=== PATIENT | female | born 1990 | race Hispanic/Latino ===

== ENCOUNTER 2016-05-02 11:56 | Emergency (ER) | payer OTHER ==
[2016-05-02 11:59] VITALS: BMI 24.0
[2016-05-02 12:02] VITALS: RESP 20; O2SAT 98
[2016-05-02] MEDS ORDERED: Sodium Chloride 0.9% 1,000 ML IV STA (12:22)
--- NOTE | 2016-05-02 12:52 | ED PDOC ---
HPI: General Adult Time Seen by Provider: 05/02/16 12:00 Chief Complaint (Nursing): GI Problem History Per: Patient History/Exam Limitations: no limitations Additional Complaint(s): 25-year-old female, PMHx includes Anxiety, presents to the emergency department with complaints of nausea and non-bilious/non-bloody vomiting and diarrhea since this morning. Patient states she doesn't know if symptoms are due to anxiety, or vice versa. Patient notes that she has been stressed at work. Denies SI/HI, abdominal pain or any other associated symptoms. no other complaints at this time. Past Medical History Reviewed: Historical Data, Nursing Documentation, Vital Signs Vital Signs: Last Vital Signs Temp 97.6 F 05/02/16 15:51 Pulse 78 05/02/16 15:51 Resp 20 05/02/16 15:51 BP 128/78 05/02/16 15:51 Pulse Ox 98 05/02/16 17:36 - Medical History PMH: Anxiety - Surgical History Surgical History: No Surg Hx - Family History Family History: States: Unknown Family Hx - Social History Current smoker - smoking cessation education provided: No Alcohol: Occasional Drugs: Denies - Allergies Allergies/Adverse Reactions: Allergies Allergy/AdvReac Type Severity Reaction Status Date / Time No Known Allergies Allergy Verified 04/16/16 07:29 Review of Systems ROS Statement: Except As Marked, All Systems Reviewed And Found Negative Constitutional: Negative for: Fever, Chills Cardiovascular: Negative for: Chest Pain, Palpitations Gastrointestinal: Positive for: Nausea, Vomiting Neurological: Negative for: Weakness, Numbness, Headache, Dizziness Psych: Positive for: Anxiety Physical Exam - Reviewed Nursing Documentation Reviewed: Yes Vital Signs Reviewed: Yes - Physical Exam Appears: Positive for: Non-toxic, No Acute Distress (appears anxious) Head Exam: Positive for: ATRAUMATIC, NORMOCEPHALIC Skin: Positive for: Warm, Dry. Negative for: Rash Neck: Positive for: Painless ROM Respiratory: Negative for: Accessory Muscle Use, Respiratory Distress Extremity: Positive for: Normal ROM Neurologic/Psych: Positive for: Alert, Oriented - Laboratory Results Result Diagrams: 05/02/16 12:59 05/02/16 12:59 - ECG O2 Sat by Pulse Oximetry: 98 Medical Decision Making Medical Decision Making: Impression: Anxiety Plan: * Beta HCg, CBC * Ativan, IVF, Pepcid, Zofran * Reassess and Disposition 1433 Patients labs were reviewed. WBC is WNL, On re-evaluation, patients abdomen is soft and non-tender. Pt will be discharged home for outpatient follow up with PMD. All questions answered. Pt agreeable with plan pt tolerated po Scribe Attestation: Documented by Sona Thompson acting as a scribe for Hugh Ruth MD. Provider Attestation: All medical record entries made by the Scribe were at my direction and personally dictated by me. I have reviewed the chart and agree that the record accurately reflects my personal performance of the history, physical exam, medical decision making, and the department course for this patient. I have also personally directed, reviewed, and agree with the discharge instructions and disposition. Disposition - Clinical Impression Clinical Impression: Nausea & vomiting, Anxiety - Patient ED Disposition Is Patient to be Admitted: No Counseled Patient/Family Regarding: Studies Performed, Diagnosis, Need For Followup - Disposition Referrals: [facility] [Outside] [facility] [Outside] Disposition: Routine/Home Disposition Time: 14:00 Condition: GOOD Additional Instructions: follow up with your primary doctor and psychiatrist in 1-2 days.r eturn to the ED with any worsening or concerning symptoms. Instructions: Acute Nausea and Vomiting (ED), Anxiety (ED) Forms: [facility] ED School/Work Excuse
[2016-05-02 13:10] LABS: BASO % 0.4 % (0.0-2.0); EOS % 0.2 % (0.0-4.0); HEMATOCRIT 42.4 % (34.0-47.0); LYMPH # 0.8 K/uL (1.0-4.3); LYMPH % 9.1 % (20.0-40.0); MEAN CELL VOLUME 96.9 fl (81.0-99.0); MEAN CORPUSCULAR HEMOGLOBIN 33.4 pg (27.0-31.0); MEAN CORPUSCULAR HGB CONC 34.5 g/dL (33.0-37.0); MONO # 0.9 K/uL (0.0-0.8); MONO % 10.3 % (0.0-10.0); PLATELET COUNT 229 K/uL (130-400); RED CELL DISTRIBUTION WIDTH 12.5 % (11.5-14.5); WHITE BLOOD COUNT 8.7 K/uL (4.8-10.8)
[2016-05-02 13:20] LABS: ALB/GLOB RATIO 1.3 (1.0-2.1); ALKALINE PHOSPHATASE 86 U/L (38-126); ALT/SGPT 29 U/L (9-52); AST/SGOT 38 U/L (14-36); BILIRUBIN,TOTAL 0.9 mg/dl (0.2-1.3); BLOOD UREA NITROGEN 10 mg/dl (7-17); CALCIUM 9.4 mg/dL (8.4-10.2); CARBON DIOXIDE 20 mmol/L (22-30); CHLORIDE 100 mmol/L (98-107); GFR AFRICAN-AMERICAN > 60; GLUCOSE,RANDOM 115 mg/dL (65-105); POTASSIUM 4.1 MMOL/L (3.6-5.0); SODIUM 140 mmol/l (132-148); TOTAL PROTEIN 7.7 G/DL (6.3-8.2)
[2016-05-02 15:19] LABS: NEUTROPHIL 78 % (42-75); REACTIVE LYMPHOCYTES 1 % (0-0); TOTAL CELLS COUNTED 100
[2016-05-02 15:53] VITALS: BP 128/78; PULSE 78; TEMP 97.6
== END 2016-05-02 15:53 | disposition home or self-care (01) ==
LOC: H.ER 11:56
DX: R11.2 Nausea with vomiting, unspecified (principal); F41.9 Anxiety disorder, unspecified
CPT/HCPCS: 80053; 81025; 84702; 85025; 96374; 96375; 99282; J2060; J2405; J7040

== ENCOUNTER 2016-05-25 03:23 | Emergency (ER) | payer OTHER ==
[2016-05-25 03:23] VITALS: BMI 24.0
[2016-05-25 03:55] VITALS: BP 146/95; PULSE 110; RESP 17; TEMP 99.2; O2SAT 98
[2016-05-25] MEDS ORDERED: Sodium Chloride 0.9% 1,000 ML IV STA ×2 (04:15→05:57)
--- NOTE | 2016-05-25 04:19 | ED PDOC ---
HPI: General Adult Time Seen by Provider: 05/25/16 04:05 Chief Complaint (Nursing): GI Problem Chief Complaint (Provider): vomiting History Per: Patient History/Exam Limitations: no limitations Onset/Duration Of Symptoms: Hrs Current Symptoms Are (Timing): Still Present Additional History Per: Patient Additional Complaint(s): 25 y/o female history of anxiety presents with 6 episodes of nonbilious vomiting episodes x 5 hours. Patient notes associated palpitations, chest tightness. Patient admits to having a few drinks with friends last night. Denies fever, headache, dizziness, cough, shortness of breath, abdominal pain, dysuria, hematuria. Past Medical History Reviewed: Historical Data, Nursing Documentation, Vital Signs Vital Signs: Last Vital Signs Temp 99.2 F 05/25/16 03:52 Pulse 110 H 05/25/16 03:52 Resp 17 05/25/16 03:52 BP 146/95 H 05/25/16 03:52 Pulse Ox 98 05/25/16 04:19 - Medical History PMH: Anxiety - Family History Family History: States: Unknown Family Hx - Home Medications Home Medications: Ambulatory Orders Medication Instructions Recorded Ondansetron [Zofran] 4 mg PO Q8H PRN #10 tab 05/25/16 - Allergies Allergies/Adverse Reactions: Allergies Allergy/AdvReac Type Severity Reaction Status Date / Time No Known Allergies Allergy Verified 04/16/16 07:29 Review of Systems ROS Statement: Except As Marked, All Systems Reviewed And Found Negative Cardiovascular: Positive for: Palpitations Gastrointestinal: Positive for: Nausea, Vomiting Physical Exam - Reviewed Nursing Documentation Reviewed: Yes Vital Signs Reviewed: Yes - Physical Exam Appears: Positive for: Well, Non-toxic, No Acute Distress Head Exam: Positive for: ATRAUMATIC, NORMAL INSPECTION, NORMOCEPHALIC Skin: Positive for: Normal Color Eye Exam: Positive for: Normal appearance ENT: Positive for: Normal ENT Inspection Cardiovascular/Chest: Positive for: Regular Rate, Rhythm Respiratory: Positive for: Normal Breath Sounds Gastrointestinal/Abdominal: Positive for: Normal Exam Back: Positive for: Normal Inspection Extremity: Positive for: Normal ROM Neurologic/Psych: Positive for: Alert, Oriented - Laboratory Results Result Diagrams: 05/25/16 04:29 05/25/16 04:29 - ECG ECG: Positive for: Viewed By Me (reviewed by ED attending) ECG Rhythm: Positive for: Sinus Rhythm O2 Sat by Pulse Oximetry: 98 - Progress ED Course And Treament: labs, ekg, urine, IV fluids, IV zofran On re-eval, patient states she is feeling better; however vomited after drinking water. More IV fluids, Zofran ordered Disposition - Clinical Impression Clinical Impression: Alcohol use, Nausea & vomiting - Patient ED Disposition Is Patient to be Admitted: No - Disposition Disposition: Transfer of Care Disposition Time: 06:12 Condition: STABLE Prescriptions: Ondansetron [Zofran] 4 mg PO Q8H PRN #10 tab PRN Reason: Nausea/Vomiting Instructions: Alcohol Intoxication (ED), Acute Nausea and Vomiting (ED) Patient Signed Over To: Abrahan Lopez Handoff Comments: pending PO challenge after administration of meds
[2016-05-25 04:33] LABS: BASO % 0.3 % (0.0-2.0); EOS # 0.1 K/uL (0.0-0.7); EOS % 0.9 % (0.0-4.0); HEMATOCRIT 41.5 % (34.0-47.0); LYMPH # 1.3 K/uL (1.0-4.3); LYMPH % 16.7 % (20.0-40.0); MEAN CELL VOLUME 96.3 fl (81.0-99.0); MEAN CORPUSCULAR HEMOGLOBIN 33.4 pg (27.0-31.0); MEAN CORPUSCULAR HGB CONC 34.7 g/dL (33.0-37.0); MEAN PLATELET VOLUME 6.4 fl (7.2-11.7); MONO % 12.2 % (0.0-10.0); NEUT # 5.5 K/uL (1.8-7.0); NEUT % 69.9 % (50.0-75.0); NRBC % 0.1 % (0.0-0.0); RED CELL DISTRIBUTION WIDTH 13.4 % (11.5-14.5); WHITE BLOOD COUNT 7.9 K/uL (4.8-10.8)
[2016-05-25 04:41] LABS: ALB/GLOB RATIO 1.3 (1.0-2.1); ALCOHOL SERUM 64 mg/dl (0-10); ALKALINE PHOSPHATASE 102 U/L (38-126); ALT/SGPT 45 U/L (9-52); AST/SGOT 71 U/L (14-36); BILIRUBIN,TOTAL 0.9 mg/dl (0.2-1.3); BLOOD UREA NITROGEN 10 mg/dl (7-17); CARBON DIOXIDE 20 mmol/L (22-30); CHLORIDE 99 mmol/L (98-107); GFR AFRICAN-AMERICAN > 60; GLUCOSE,RANDOM 113 mg/dL (65-105); LIPASE 64 U/L (23-300); POTASSIUM 3.7 MMOL/L (3.6-5.0); SODIUM 140 mmol/l (132-148); TOTAL PROTEIN 8.2 G/DL (6.3-8.2)
[2016-05-25 05:11] LABS: THYROID STIMULATING HORMONE 2.56 mIU/ML (0.46-4.68)
--- NOTE | 2016-05-25 06:24 | ED PDOC ---
- Laboratory Results Result Diagrams: 05/25/16 04:29 05/25/16 04:29 - ECG O2 Sat by Pulse Oximetry: 98 Medical Decision Making Medical Decision Making: Patient s/o from [place] [facility] at 0600 pending PO challenge. 710am Pt. is feeling much better, tolerating PO. states this is a recurring problem, pt. states she will see doctor in [facility]. return precautions given. Scribe Attestation: Documented by Maria Esther Draper acting as a scribe for Abrahan Lopez MD. Provider Scribe Attestation: All medical record entries made by the Scribe were at my direction and personally dictated by me. I have reviewed the chart and agree that the record accurately reflects my personal performance of the history, physical exam, medical decision making, and the department course for this patient. I have also personally directed, reviewed, and agree with the discharge instructions and disposition. Disposition - Clinical Impression Clinical Impression: Alcohol use, Nausea & vomiting - POA Present On Arrival: None - Disposition Disposition: Routine/Home Disposition Time: 07:10 Condition: STABLE Prescriptions: Ondansetron [Zofran] 4 mg PO Q8H PRN #10 tab PRN Reason: Nausea/Vomiting Instructions: Alcohol Intoxication (ED), Acute Nausea and Vomiting (ED)
[2016-05-25 06:44] LABS: RBC URINE 2 /hpf (0-3); URINE BACTERIA OCC (<OCC); URINE BILIRUBIN NEGATIVE (NEGATIVE); URINE BLOOD NEGATIVE (NEGATIVE); URINE COLOR YELLOW (YELLOW); URINE GLUCOSE (UA) NEG (Normal); URINE KETONE 80 mg/dL (NEGATIVE); URINE LEUKOCYTE ESTERASE NEG Leu/uL (Negative); URINE PROTEIN 100 mg/dL (NEGATIVE); URINE UROBILINOGEN 0.2-1.0 mg/dL (0.2-1.0); WBC URINE 6 /hpf (0-5)
== END 2016-05-25 07:30 | disposition home or self-care (01) ==
LOC: H.ER 03:23
DX: F10.10 Alcohol abuse, uncomplicated (principal); R11.2 Nausea with vomiting, unspecified; Y90.3 Blood alcohol level of 60-79 mg/100 ml
CPT/HCPCS: 80053; 81003; 81025; 83690; 84443; 84484; 85025; 96360; 99282; G0480; J2405; J7040

== ENCOUNTER 2016-08-03 06:44 | Emergency (ER) | payer OTHER ==
[2016-08-03 06:45] VITALS: BMI 24.0
[2016-08-03 07:02] VITALS: TEMP 98.8
[2016-08-03] MEDS ORDERED: Sodium Chloride 0.9% 500 ML IV ONE (07:19)
--- NOTE | 2016-08-03 07:22 | ED PDOC ---
HPI: Chest Pain Time Seen by Provider: 08/03/16 07:02 Chief Complaint (Nursing): Chest Pain History Per: Patient History/Exam Limitations: no limitations Onset/Duration Of Symptoms: Gradual (this am at 4am) Current Symptoms Are (Timing): Still Present Severity: Mild Quality: Tightness Associated Symptoms: Nausea. denies: Dyspnea, Diaphoresis, Syncope Modifying Factors: None Exacerbating Factors: None Alleviating Factors: None Additional Complaint(s): similar sx to anxiety in the past Past Medical History Reviewed: Historical Data, Nursing Documentation, Vital Signs Vital Signs: Last Vital Signs Temp 98.8 F 08/03/16 06:58 Pulse 53 L 08/03/16 08:19 Resp 16 08/03/16 06:58 BP 174/70 H 08/03/16 08:19 Pulse Ox 97 08/03/16 08:19 - Medical History PMH: Anxiety - Family History Family History: States: Unknown Family Hx - Living Arrangements Living Arrangements: With Family - Social History Current smoker - smoking cessation education provided: No Alcohol: Occasional - Home Medications Home Medications: Ambulatory Orders Medication Instructions Recorded Ondansetron [Zofran] 4 mg PO Q8H PRN #10 tab 05/25/16 - Allergies Allergies/Adverse Reactions: Allergies Allergy/AdvReac Type Severity Reaction Status Date / Time No Known Allergies Allergy Verified 04/16/16 07:29 Review of Systems ROS Statement: Except As Marked, All Systems Reviewed And Found Negative Constitutional: Negative for: Fever, Chills Cardiovascular: Positive for: Chest Pain, Palpitations, Light Headedness. Negative for: Edema Respiratory: Negative for: Cough, Shortness of Breath Gastrointestinal: Positive for: Nausea. Negative for: Vomiting, Abdominal Pain , Diarrhea Neurological: Negative for: Weakness, Numbness Physical Exam - Reviewed Nursing Documentation Reviewed: Yes Vital Signs Reviewed: Yes - Physical Exam Appears: Positive for: Uncomfortable (anxious) Head Exam: Positive for: ATRAUMATIC, NORMAL INSPECTION, NORMOCEPHALIC Eye Exam: Positive for: Normal appearance, EOMI, PERRL Neck: Positive for: Normal, Painless ROM, Supple Cardiovascular/Chest: Positive for: Regular Rate, Rhythm, Chest Non Tender. Negative for: Edema, Murmur, Bradycardia, Tachycardia, Ectopy, Friction Rub, Irregularly Irregular Respiratory: Positive for: Normal Breath Sounds. Negative for: Decreased Breath Sounds, Accessory Muscle Use, Crackles, Rales, Rhonchi, Stridor, Wheezing Pulses-Radial (L): 2+ Pulses-Radial (R): 2+ Gastrointestinal/Abdominal: Positive for: Normal Exam, Bowel Sounds, Soft. Negative for: Tenderness Back: Positive for: Normal Inspection. Negative for: L CVA Tenderness, R CVA Tenderness Extremity: Positive for: Normal ROM. 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 Negative for: Motor/Sensory Deficits - Laboratory Results Result Diagrams: 08/03/16 07:45 08/03/16 07:45 - ECG ECG: Positive for: Interpreted By Me ECG Rhythm: Positive for: Normal QRS, Normal ST Segment, Sinus Rhythm. Negative for: ST/T Changes Interpretation Of Abn EKG: rate of 94, no evidnece of ischemia O2 Sat by Pulse Oximetry: 100 Pulse Ox Interpretation: Normal - Radiology X-Ray: Interpreted by Me X-Ray Interpretation: No Acute Disease - Progress ED Course And Treament: Suboptimal opacification of the pulmonary arteries as above. Allowing for this limitation, no obvious central pulmonary artery filling defects to suggest pulmonary embolism. Diffuse hypoattenuation of the liver. Multiple discrete hypodense hepatic lesions are evident of unclear significance. Left hepatic lobe 2.2 cm heterogeneous lesion is indeterminate. Recommend dedicated liver protocol cross -sectional imaging for further characterization. Discrete elliptical density within the medial left breast. Recommend further evaluation with dedicated breast imaging if indicated. Re-evaluation Time: 10:58 Condition: Improved Disposition - Clinical Impression Clinical Impression: Chest pain, Alcohol abuse - Patient ED Disposition Is Patient to be Admitted: No Counseled Patient/Family Regarding: Studies Performed, Diagnosis, Need For Followup - Disposition Disposition: Routine/Home Disposition Time: 11:00 Condition: GOOD Instructions: Alcohol Use Disorder (ED), Chest Pain (ED)
[2016-08-03 07:50] LABS: BASO % 0.4 % (0.0-2.0); EOS # 0.2 K/uL (0.0-0.7); EOS % 3.6 % (0.0-4.0); LYMPH % 18.9 % (20.0-40.0); MEAN CELL VOLUME 99.3 fl (81.0-99.0); MEAN CORPUSCULAR HGB CONC 34.3 g/dL (33.0-37.0); MEAN PLATELET VOLUME 6.9 fl (7.2-11.7); MONO # 0.7 K/uL (0.0-0.8); MONO % 12.6 % (0.0-10.0); NEUT # 3.5 K/uL (1.8-7.0); NEUT % 64.5 % (50.0-75.0); RBC 4.12 Mil/uL (3.80-5.20); RED CELL DISTRIBUTION WIDTH 13.7 % (11.5-14.5); WHITE BLOOD COUNT 5.4 K/uL (4.8-10.8)
[2016-08-03 08:01] LABS: ALB/GLOB RATIO 1.7 (1.0-2.1); ALBUMIN 4.8 g/dL (3.5-5.0); ALT/SGPT 114 U/L (9-52); AST/SGOT 100 U/L (14-36); BLOOD UREA NITROGEN 10 mg/dl (7-17); CALCIUM 9.3 mg/dL (8.4-10.2); GFR AFRICAN-AMERICAN > 60; GFR NON-AFRICAN AMERICAN > 60; LIPASE 79 U/L (23-300); MAGNESIUM 1.6 MG/DL (1.6-2.3)
[2016-08-03 08:13] LABS: SQUAMOUS EPITHIAL 3 /hpf (0-5); URINE BACTERIA RARE (<OCC); URINE BILIRUBIN NEGATIVE (NEGATIVE); URINE BLOOD NEGATIVE (NEGATIVE); URINE CLARITY SLIGHTY-CLOUDY (Clear); URINE COLOR YELLOW (YELLOW); URINE GLUCOSE (UA) NEG (Normal); URINE LEUKOCYTE ESTERASE TRACE Leu/uL (Negative); URINE NITRATE NEGATIVE (NEGATIVE); URINE PROTEIN 30 mg/dL (NEGATIVE); URINE UROBILINOGEN 0.2-1.0 mg/dL (0.2-1.0)
[2016-08-03 08:16] LABS: BARBITURATES, UR NEGATIVE (NEGATIVE); BENZODIAZEPINES, UR NEGATIVE (NEGATIVE); OPIATES, UR NEGATIVE (NEGATIVE); PHENCYCLIDINE, UR NEGATIVE (NEGATIVE)
[2016-08-03 08:19] LABS: INR 0.9 (0.9-1.2); PARTIAL THROMBOPLASTIN TIME 30.6 Seconds (25.6-37.1); PROTHROMBIN TIME 9.8 Seconds (9.8-13.1)
[2016-08-03] MEDS ORDERED: Sodium Chloride 0.9% 50 ML IV ONE (08:50)
[2016-08-03] MEDS ORDERED: Iodixanol 320 MG/ML 100 ML BOTTLE IV ONE (08:51)
--- NOTE | 2016-08-03 10:46 | CT ---
CTA chest PE protocol Indication: Chest pain Technique: Contiguous axial images were obtained through the chest with intravenous contrast enhancement. Sagittal and coronal reconstructions were generated and reviewed. This CT exam was performed using 1 or more of the falling dose reduction techniques: Automated exposure control, adjustment of the MAA and/or kV according to patient size, and/or use of iterative reconstruction technique. IV Contrast: 98 cc Visipaque 320 Radiation dose (DLP): Not available Comparison: Chest x-ray performed the same day and CTA chest performed 04/16/16 Findings: Visualized portions of the inferior thyroid gland appear unremarkable. The mediastinal and hilar vascular structures appear within normal limits. The heart appears within normal limits of size. There is suboptimal opacification of the pulmonary arteries due to missed bolus of the intravenous contrast limiting evaluation for pulmonary embolus (approximately 118 HU at the main pulmonary artery). Given this limitation, there are no obvious visible intraluminal filling defects within the central pulmonary arteries to suggest central pulmonary embolism. No focal consolidation. No pleural effusion. No pneumothorax. No suspicious pulmonary nodules measuring greater than 5 mm. Limited visualized portions of the upper abdomen demonstrates hypoattenuation of the liver consistent with hepatic steatosis. Additionally multiple hepatic hypodense lesions are evident of unclear significance. Heterogeneous left hepatic lobe mass measures approximately 2.2 x 2.2 cm. Discrete elliptical shaped density re-identified within the medial left breast measuring approximately 1.4 x 0.6 cm, indeterminate. Recommend further evaluation with dedicated breast imaging if indicated. No acute osseous abnormality is detected. Impression: Suboptimal opacification of the pulmonary arteries as above. Allowing for this limitation, no obvious central pulmonary artery filling defects to suggest pulmonary embolism. Diffuse hypoattenuation of the liver. Multiple discrete hypodense hepatic lesions are evident of unclear significance. Left hepatic lobe 2.2 cm heterogeneous lesion is indeterminate. Recommend dedicated liver protocol cross-sectional imaging for further characterization. Discrete elliptical density within the medial left breast. Recommend further evaluation with dedicated breast imaging if indicated. Findings discussed with Dr. Lombardo on 08/04/16 at 10:40 a.m.
[2016-08-03 11:31] VITALS: BP 172/90; PULSE 86; RESP 19; O2SAT 99
--- NOTE | 2016-08-03 11:33 | RAD ---
HISTORY: cp, shortness of breath COMPARISON: Chest x-ray performed 04/16/16, CTA chest performed 08/03/16 TECHNIQUE: Chest PA and lateral FINDINGS: LUNGS: No focal consolidation. Please note that chest x-ray has limited sensitivity for the detection of pulmonary masses. PLEURA: No significant pleural effusion identified. No definite pneumothorax . CARDIOVASCULAR: The cardiomediastinal silhouette appears within normal limits of size. OSSEOUS STRUCTURES: No acute osseous abnormality identified. VISUALIZED UPPER ABDOMEN: Unremarkable. OTHER FINDINGS: None. IMPRESSION: No focal consolidation, significant pleural effusion, or definite pneumothorax identified.
--- NOTE | 2016-08-11 06:29 | CARD ---
APPROVED REPORT EKG Measurement Heart [id number] <Conclusion> Normal sinus rhythm Normal ECG
== END 2016-08-03 13:19 | disposition home or self-care (01) ==
LOC: H.ER 06:44
DX: F10.10 Alcohol abuse, uncomplicated (principal); R07.89 Other chest pain; F41.9 Anxiety disorder, unspecified

== ENCOUNTER 2016-12-25 22:56 | Emergency (ER) | payer OTHER ==
[2016-12-25 22:56] VITALS: BMI 24.0
[2016-12-25 23:16] VITALS: BP 130/96; PULSE 103; RESP 18; TEMP 98; O2SAT 99
[2016-12-25] MEDS ORDERED: Sodium Chloride 0.9% 1,000 ML IV STA (23:30)
--- NOTE | 2016-12-25 23:56 | ED PDOC ---
HPI: Chest Pain Time Seen by Provider: 12/25/16 23:17 Chief Complaint (Nursing): Chest Pain Chief Complaint (Provider): Chest Pain History Per: Patient History/Exam Limitations: no limitations Onset/Duration Of Symptoms: Hrs (x5) Current Symptoms Are (Timing): Still Present Quality: Tightness Exacerbating Factors: Deep Breathing Additional Complaint(s): 26 year old female presents to ED with complaints of chest pain x5 hours and has a past medical history of anxiety (prescribed Xanax as needed). Describes pain as a tightness present in her lower mid-sternal area. Notes that pain worsens with deep breathing and confirms having similar pain back in May 2016 for which she was seen in the ED. (+) anxiety. 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 Confirms that she did not sleep much this weekend and also drank heavily for the past few days. Notes concern for dehydration. PCP: Marylu Past Medical History Reviewed: Historical Data, Nursing Documentation, Vital Signs Vital Signs: Last Vital Signs Temp 98 F 12/25/16 23:13 Pulse 103 H 12/25/16 23:13 Resp 18 12/25/16 23:13 BP 130/96 H 12/25/16 23:13 Pulse Ox 99 12/26/16 01:45 - Medical History PMH: Anxiety - Surgical History Surgical History: No Surg Hx - Family History Family History: States: No Known Family Hx - Social History Current smoker - smoking cessation education provided: No Ex-Smoker (has not smoked in the last 12 months): No Alcohol: Social Drugs: Denies - Home Medications Home Medications: Ambulatory Orders Medication Instructions Recorded Ondansetron [Zofran] 4 mg PO Q8H PRN #10 tab 05/25/16 - Allergies Allergies/Adverse Reactions: Allergies Allergy/AdvReac Type Severity Reaction Status Date / Time No Known Allergies Allergy Verified 12/25/16 23:13 KANDACE Risk Score for UA/NSTEMI - KANDACE Risk Score Age > 64: NO 3 or more CAD Risk Factors: NO Known CAD (Stenosis greater than 50%): NO Aspirin use in past 7 days: NO KANDACE Score: 0 Risk %: 5% Curb-65 Severity Score - CURB-65 Severity Score Confusion: No Respiratory Rate greater than/equal to 30: No Systolic BP <90 or Diastolic BP less than/equal 60mmHg: No Age >64: No Curb-65 Score: 0 Percentage 30-day mortality: 0.6% Wells Criteria for PE - Wells Criteria for Pulmonary Embolism Clinical Signs and Symptoms of DVT: No P.E is #1 Diagnosis, or Equally Likely: No Heart Rate >100: Yes Immobilization at least 3 days;Surgery previous 4 weeks: No Previous, objectively diagnosed PE or DVT: No Hemoptysis: No Malignancy w/treatment within 6 months, or palliative: No Total Score: 1.5 Review of Systems ROS Statement: Except As Marked, All Systems Reviewed And Found Negative Cardiovascular: Positive for: Chest Pain Psych: Positive for: Anxiety Physical Exam - Reviewed Nursing Documentation Reviewed: Yes Vital Signs Reviewed: Yes - Physical Exam Appears: Positive for: In Acute Distress (anxious) Head Exam: Positive for: ATRAUMATIC, NORMOCEPHALIC Skin: Positive for: Warm, Dry Eye Exam: Positive for: EOMI, PERRL ENT: Positive for: Other (dry mucus membranes). Negative for: Pharyngeal Erythema, Tonsillar Exudate Neck: Positive for: Painless ROM, Supple Cardiovascular/Chest: Positive for: Tachycardia. Negative for: Murmur Respiratory: Positive for: Normal Breath Sounds. Negative for: Rales, Respiratory Distress Gastrointestinal/Abdominal: Positive for: Soft. Negative for: Tenderness Extremity: Positive for: Normal ROM. Negative for: Deformity Neurologic/Psych: Positive for: Alert, Oriented (x3), Mood/Affect (anxious). Negative for: Motor/Sensory Deficits - Laboratory Results Result Diagrams: 12/25/16 23:40 12/25/16 23:40 - ECG O2 Sat by Pulse Oximetry: 99 (RA) Pulse Ox Interpretation: Normal Medical Decision Making Medical Decision Makin Initial impression: chest pain DDx: dehydration, reflux, alcohol withdrawal, anxiety, electrolyte abnormality Initial plan: * EtOH serum * Labs * UDrug screen * Magnesium * Phosphorus * Lirium 50mg PO * NS IV * Re-evaluation 0000 Patient will be signed out to Dr. Lopez pending ED work up. Scribe Attestation: Documented by Tesha Friend acting as a scribe for Morena Wynn MD. Scribe Attestation: All medical record entries made by the Scribe were at my direction and personally dictated by me. I have reviewed the chart and agree that the record accurately reflects my personal performance of the history, physical exam, medical decision making, and the department course for this patient. I have also personally directed, reviewed, and agree with the discharge instructions and disposition. Disposition - Clinical Impression Clinical Impression: Alcohol use, Dehydration - Disposition Disposition: Transfer of Care Disposition Time: 00:00 Condition: IMPROVED Instructions: Dehydration (ED), At-Risk Alcohol Use (ED) Forms: [employer] (Thai) Patient Signed Over To: Abrahan Lopez Handoff Comments: Pending ED work up
[2016-12-26 00:02] LABS: BASO % 0.5 % (0.0-2.0); EOS # 0.1 K/uL (0.0-0.7); EOS % 1.2 % (0.0-4.0); HEMATOCRIT 40.2 % (34.0-47.0); LYMPH # 0.9 K/uL (1.0-4.3); LYMPH % 14.1 % (20.0-40.0); MEAN CELL VOLUME 102.4 fl (81.0-99.0); MEAN CORPUSCULAR HEMOGLOBIN 34.5 pg (27.0-31.0); MEAN CORPUSCULAR HGB CONC 33.6 g/dL (33.0-37.0); MEAN PLATELET VOLUME 6.7 fl (7.2-11.7); MONO # 0.7 K/uL (0.0-0.8); MONO % 10.5 % (0.0-10.0); NEUT # 4.7 K/uL (1.8-7.0); NEUT % 73.7 % (50.0-75.0); RED CELL DISTRIBUTION WIDTH 12.9 % (11.5-14.5); WHITE BLOOD COUNT 6.3 K/uL (4.8-10.8)
[2016-12-26 00:11] LABS: ALB/GLOB RATIO 1.6 (1.0-2.1); ALCOHOL SERUM 93 mg/dl (0-10); ALKALINE PHOSPHATASE 93 U/L (38-126); ALT/SGPT 115 U/L (9-52); AST/SGOT 154 U/L (14-36); BILIRUBIN,TOTAL 0.8 mg/dl (0.2-1.3); BLOOD UREA NITROGEN 5 mg/dl (7-17); CALCIUM 8.7 mg/dL (8.4-10.2); CARBON DIOXIDE 23 mmol/L (22-30); CHLORIDE 100 mmol/L (98-107); GFR AFRICAN-AMERICAN > 60; GLUCOSE,RANDOM 96 mg/dL (65-105); MAGNESIUM 1.7 MG/DL (1.6-2.3); PHOSPHOROUS 3.3 mg/dl (2.5-4.5); POTASSIUM 3.6 MMOL/L (3.6-5.0); SODIUM 137 mmol/l (132-148); TOTAL PROTEIN 7.2 G/DL (6.3-8.2)
--- NOTE | 2016-12-26 00:27 | ED PDOC ---
- Laboratory Results Result Diagrams: 12/25/16 23:40 12/25/16 23:40 - ECG O2 Sat by Pulse Oximetry: 99 (RA) Medical Decision Making Medical Decision Makin Patient signed out to me from Dr. Wynn pending ED work up. 0136 Patient notes significant improvement in symptoms. Patient is stable for discharge home. Scribe Attestation: Documented by Tesha Friend acting as a scribe for Abrahan Lopez MD. Scribe Attestation: All medical record entries made by the Scribe were at my direction and personally dictated by me. I have reviewed the chart and agree that the record accurately reflects my personal performance of the history, physical exam, medical decision making, and the department course for this patient. I have also personally directed, reviewed, and agree with the discharge instructions and disposition. Disposition - Clinical Impression Clinical Impression: Alcohol use, Dehydration - POA Present On Arrival: None - Disposition Referrals: [facility] [Outside] Disposition: Routine/Home Disposition Time: 01:36 Condition: IMPROVED Instructions: Dehydration (ED), At-Risk Alcohol Use (ED) Forms: [email or web address] (Nepalese)
== END 2016-12-26 01:55 | disposition home or self-care (01) ==
LOC: H.ER 22:56
DX: E86.0 Dehydration (principal); F10.10 Alcohol abuse, uncomplicated; Y90.4 Blood alcohol level of 80-99 mg/100 ml; F41.9 Anxiety disorder, unspecified
CPT/HCPCS: 80053; 80320; 80324; 80345; 80346; 80349; 80353; 80358; 80361; 81025; 83735; 83992; 84100; 85025; 96360; 99283; J7040

== ENCOUNTER 2017-01-12 07:22 | Emergency (ER) | payer OTHER ==
[2017-01-12 07:32] VITALS: BMI 24.1
[2017-01-12] MEDS ORDERED: Sodium Chloride 0.9% 1,000 ML IV STA (07:57)
--- NOTE | 2017-01-12 08:02 | ED PDOC ---
HPI: General Adult Time Seen by Provider: 01/12/17 07:30 Chief Complaint (Nursing): Anxiety Chief Complaint (Provider): Anxiety History Per: Patient History/Exam Limitations: no limitations Onset/Duration Of Symptoms: Hrs (x 4) Current Symptoms Are (Timing): Still Present Additional Complaint(s): Ida Munoz is a 26 year old female, with a past medical history of anxiety, who presents complaining that she awoke at 4AM feeling shaky, as if her heart was racing. She attempted to get up and felt nauseous/lightheaded, and as if she was unable to take a deep breath. No chest pain, shortness of breath, headache, fever, vomiting, diarrhea, leg pain, or abdominal pain. Patient reports having episodes of anxiety attacks in the past, but this episode is longer than usual. She admits to drinking alcohol last night, no drug use. Also states she has been stressed at work recently, which may have triggered symptoms. No long distance travel. PMD: [facility] Past Medical History Reviewed: Historical Data, Nursing Documentation, Vital Signs Vital Signs: Last Vital Signs Temp 98.1 F 01/12/17 07:32 Pulse 104 H 01/12/17 07:32 Resp 17 01/12/17 07:32 BP 138/93 H 01/12/17 07:32 Pulse Ox 100 01/12/17 10:21 - Medical History PMH: Anxiety Denies: Chronic Kidney Disease - Surgical History Surgical History: No Surg Hx - Family History Family History: States: Unknown Family Hx - Social History Current smoker - smoking cessation education provided: No Alcohol: Social Drugs: Denies - Home Medications Home Medications: Ambulatory Orders Medication Instructions Recorded No Known Home Med 01/12/17 - Allergies Allergies/Adverse Reactions: Allergies Allergy/AdvReac Type Severity Reaction Status Date / Time No Known Allergies Allergy Verified 12/25/16 23:13 Review of Systems ROS Statement: Except As Marked, All Systems Reviewed And Found Negative Constitutional: Negative for: Fever Eyes: Negative for: Vision Change Cardiovascular: Negative for: Chest Pain Respiratory: Negative for: Shortness of Breath Gastrointestinal: Positive for: Nausea. Negative for: Vomiting, Abdominal Pain , Diarrhea Musculoskeletal: Negative for: Leg Pain Neurological: Positive for: Dizziness. Negative for: Headache Psych: Positive for: Anxiety Physical Exam - Reviewed Nursing Documentation Reviewed: Yes Vital Signs Reviewed: Yes (pulsox 100 on RA not 88) - Physical Exam Appears: Positive for: Non-toxic, No Acute Distress Head Exam: Positive for: ATRAUMATIC, NORMAL INSPECTION, NORMOCEPHALIC Skin: Positive for: Normal Color, Warm, Dry Eye Exam: Positive for: EOMI, Normal appearance, PERRL ENT: Positive for: Normal ENT Inspection Neck: Positive for: Normal, Painless ROM, Supple Cardiovascular/Chest: Positive for: Regular Rate, Rhythm. Negative for: Murmur Respiratory: Positive for: Normal Breath Sounds. Negative for: Accessory Muscle Use, Wheezing, Respiratory Distress Pulses-Dorsalis Pedis (L): 2+ Pulses-Dorsalis Pedis (R): 2+ Gastrointestinal/Abdominal: Positive for: Normal Exam, Soft. Negative for: Tenderness Back: Positive for: Normal Inspection. Negative for: L CVA Tenderness, R CVA Tenderness, Vertebral Tenderness Extremity: Positive for: Normal ROM, Capillary Refill (< 2 sec). 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 Negative for : Motor/Sensory Deficits - Laboratory Results Result Diagrams: 01/12/17 08:15 01/12/17 08:15 Interpretation Of Abn Labs: Troponin negative. Coags are wnl. LFTs elevated Urine POC: Negative - ECG ECG: Positive for: Interpreted By Me, Viewed By Me ECG Rhythm: Positive for: Normal QRS, Normal ST Segment, Sinus Rhythm. 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 Ceron. Pt is medically stable. AAOx3. 1030: Stable. AAOx3. Pain free. Tolerated PO. LFTs mild elevation likely from etoh use. Medical Decision Making Medical Decision Making: Time: 7:56 Initial Plan: * CMP * Alcohol serum * Troponin I * CBC w/ differential * PTT * Prothrombin time * Chest X-Ray * EKG * NS IV 1000 ml at 1000 mls/hr * Zofran 4 mg IV * Pending crisis evaluation Scribe Attestation: Documented by Jodi Antoine, acting as a scribe for Butch Gao MD Provider Scribe Attestation: All medical record entries made by the Scribe were at my direction and personally dictated by me. I have reviewed the chart and agree that the record accurately reflects my personal performance of the history, physical exam, medical decision making, and the department course for this patient. I have also personally directed, reviewed, and agree with the discharge instructions and disposition. Disposition - Clinical Impression Clinical Impression: Anxiety - Patient ED Disposition Is Patient to be Admitted: No Counseled Patient/Family Regarding: Studies Performed, Diagnosis, Need For Followup - Disposition Referrals: [facility] [Outside] - 01/16/17 [facility] [Outside] Disposition: Routine/Home Disposition Time: 10:31 Condition: STABLE Additional Instructions: Return if not better in 3 days. Instructions: Anxiety (ED) Forms: [facility] (Slovenian), [facility] ED School/Work Excuse
[2017-01-12 08:05] VITALS: O2SAT 100
[2017-01-12 08:32] LABS: BASO % 0.4 % (0.0-2.0); EOS # 0.1 K/uL (0.0-0.7); EOS % 0.7 % (0.0-4.0); HEMATOCRIT 43.7 % (34.0-47.0); LYMPH # 0.8 K/uL (1.0-4.3); LYMPH % 9.7 % (20.0-40.0); MEAN CELL VOLUME 101.2 fl (81.0-99.0); MEAN CORPUSCULAR HEMOGLOBIN 34.8 pg (27.0-31.0); MEAN CORPUSCULAR HGB CONC 34.4 g/dL (33.0-37.0); MEAN PLATELET VOLUME 6.7 fl (7.2-11.7); MONO # 0.7 K/uL (0.0-0.8); MONO % 9.6 % (0.0-10.0); NEUT # 6.2 K/uL (1.8-7.0); NEUT % 79.6 % (50.0-75.0); NRBC % 0.1 % (0.0-0.0); PLATELET COUNT 193 K/uL (130-400); RED CELL DISTRIBUTION WIDTH 12.9 % (11.5-14.5); WHITE BLOOD COUNT 7.8 K/uL (4.8-10.8)
[2017-01-12 08:41] LABS: PARTIAL THROMBOPLASTIN TIME 30.2 Seconds (25.6-37.1)
[2017-01-12 08:50] LABS: ALB/GLOB RATIO 1.5 (1.0-2.1); ALCOHOL SERUM < 10 mg/dl (0-10); ALKALINE PHOSPHATASE 96 U/L (38-126); ALT/SGPT 116 U/L (9-52); AST/SGOT 135 U/L (14-36); BILIRUBIN,TOTAL 0.9 mg/dl (0.2-1.3); BLOOD UREA NITROGEN 8 mg/dl (7-17); CALCIUM 9.4 mg/dL (8.4-10.2); CARBON DIOXIDE 24 mmol/L (22-30); CHLORIDE 99 mmol/L (98-107); GFR AFRICAN-AMERICAN > 60; GLUCOSE,RANDOM 93 mg/dL (65-105); SODIUM 137 mmol/l (132-148); TOTAL PROTEIN 7.5 G/DL (6.3-8.2)
[2017-01-12 09:36] LABS: EOSINOPHIL 1 % (0-7); NEUTROPHIL 82 % (42-75); TOTAL CELLS COUNTED 100
--- NOTE | 2017-01-12 11:06 | RAD ---
HISTORY: dyspnea COMPARISON: Chest radiographs 07/26/2016. FINDINGS: LUNGS: No active pulmonary disease. PLEURA: No significant pleural effusion identified, no pneumothorax apparent. CARDIOVASCULAR: Normal. OSSEOUS STRUCTURES: No significant abnormalities. VISUALIZED UPPER ABDOMEN: Normal. OTHER FINDINGS: None. IMPRESSION: No interval acute cardiopulmonary disease appreciated.
[2017-01-12 11:12] VITALS: BP 121/68; PULSE 81; RESP 14; TEMP 98
--- NOTE | 2017-01-13 08:57 | CARD ---
APPROVED REPORT EKG Measurement Heart [id number] IN 122P54 [id number] <Conclusion> Normal sinus rhythm Normal ECG
== END 2017-01-12 11:10 | disposition home or self-care (01) ==
LOC: H.ER 07:22
DX: F41.9 Anxiety disorder, unspecified (principal)
CPT/HCPCS: 71010; 80053; 80320; 81025; 84484; 85025; 85610; 85730; 93005; 96374; 99283; J2405; J7040

== ENCOUNTER 2017-03-02 04:41 | Emergency (ER) | payer OTHER ==
[2017-03-02 04:42] VITALS: BMI 24.1
[2017-03-02 04:58] VITALS: RESP 16; TEMP 98.9; O2SAT 100
[2017-03-02 05:45] LABS: BASO % 0.4 % (0.0-2.0); EOS # 0.1 K/uL (0.0-0.7); EOS % 1.4 % (0.0-4.0); LYMPH # 0.7 K/uL (1.0-4.3); LYMPH % 14.1 % (20.0-40.0); MEAN CELL VOLUME 100.9 fl (81.0-99.0); MEAN CORPUSCULAR HEMOGLOBIN 34.5 pg (27.0-31.0); MEAN CORPUSCULAR HGB CONC 34.2 g/dL (33.0-37.0); MEAN PLATELET VOLUME 6.5 fl (7.2-11.7); MONO # 0.6 K/uL (0.0-0.8); MONO % 11.9 % (0.0-10.0); NEUT # 3.7 K/uL (1.8-7.0); NEUT % 72.2 % (50.0-75.0); NRBC % 0.1 % (0.0-0.0); RBC 4.07 Mil/uL (3.80-5.20); RED CELL DISTRIBUTION WIDTH 12.7 % (11.5-14.5); WHITE BLOOD COUNT 5.1 K/uL (4.8-10.8)
--- NOTE | 2017-03-02 05:56 | ED PDOC ---
HPI: Chest Pain Time Seen by Provider: 03/02/17 04:52 Chief Complaint (Nursing): Palpitations Chief Complaint (Provider): Anxiety and palpitations History Per: Patient History/Exam Limitations: no limitations Onset/Duration Of Symptoms: Hrs (1 hour ago) Current Symptoms Are (Timing): Still Present Additional Complaint(s): 26 y/o female with a history of anxiety presents to the ED, after awakening from her sleep, complaining of have chest palpitations and feelings of anxiety, onset of 1 hour prior to arrival. Patient has also been experiencing some shortness of breath and chest tightness. She denies leg swelling and abdominal pain. Patient also reports using Xanax for anxiety, but now takes Lexapro. Of note, patient informs the provider of drinking significant amounts of alcohol the night before. Past Medical History Reviewed: Historical Data, Nursing Documentation, Vital Signs Vital Signs: Last Vital Signs Temp 98.9 F 03/02/17 04:55 Pulse 105 H 03/02/17 04:55 Resp 16 03/02/17 04:55 BP 151/85 H 03/02/17 04:55 Pulse Ox 100 03/02/17 06:14 - Medical History PMH: Anxiety Denies: Diabetes, Hepatitis, HIV, HTN, Chronic Kidney Disease, Seizures, Sexually Transmitted Disease - Surgical History Surgical History: No Surg Hx - Family History Family History: States: Unknown Family Hx - Social History Current smoker - smoking cessation education provided: No Ex-Smoker (has not smoked in the last 12 months): No Alcohol: > 2 Drinks/Day Drugs: Denies - Home Medications Home Medications: Ambulatory Orders Medication Instructions Recorded No Known Home Med 01/12/17 - Allergies Allergies/Adverse Reactions: Allergies Allergy/AdvReac Type Severity Reaction Status Date / Time No Known Allergies Allergy Verified 12/25/16 23:13 KANDACE Risk Score for UA/NSTEMI - KANDACE Risk Score Age > 64: NO 3 or more CAD Risk Factors: NO Known CAD (Stenosis greater than 50%): NO Aspirin use in past 7 days: NO Severe Angina: NO EKG ST changes greater than 0.5mm: NO Positive Cardiac Marker: NO KANDACE Score: 0 Risk %: 5% Wells Criteria for PE - Wells Criteria for Pulmonary Embolism Clinical Signs and Symptoms of DVT: No P.E is #1 Diagnosis, or Equally Likely: No Heart Rate >100: No Immobilization at least 3 days;Surgery previous 4 weeks: No Previous, objectively diagnosed PE or DVT: No Hemoptysis: No Malignancy w/treatment within 6 months, or palliative: No Total Score: 0 Review of Systems ROS Statement: Except As Marked, All Systems Reviewed And Found Negative Cardiovascular: Positive for: Other (chest tightness) Respiratory: Positive for: Shortness of Breath Gastrointestinal: Negative for: Abdominal Pain Musculoskeletal: Negative for: Leg Pain (leg swelling) Psych: Positive for: Anxiety Physical Exam - Reviewed Nursing Documentation Reviewed: Yes Vital Signs Reviewed: Yes - Physical Exam Appears: Positive for: Well (appears not come, anxious), Non-toxic. Negative for: Uncomfortable Head Exam: Positive for: ATRAUMATIC, NORMAL INSPECTION, NORMOCEPHALIC Skin: Positive for: Normal Color, Warm Eye Exam: Positive for: Normal appearance, EOMI, PERRL ENT: Positive for: Normal ENT Inspection Neck: Positive for: Normal, Painless ROM, Supple Cardiovascular/Chest: Positive for: Regular Rate, Rhythm. Negative for: Murmur Respiratory: Positive for: Normal Breath Sounds. Negative for: Respiratory Distress Gastrointestinal/Abdominal: Positive for: Normal Exam, Soft. Negative for: Tenderness Back: Positive for: Normal Inspection Extremity: Positive for: Normal ROM. Negative for: Pedal Edema, Deformity Neurologic/Psych: Positive for: Alert, Oriented. Negative for: Motor/Sensory Deficits - Laboratory Results Result Diagrams: 03/02/17 05:38 03/02/17 05:38 - ECG O2 Sat by Pulse Oximetry: 100 (RA) Pulse Ox Interpretation: Normal - Progress Re-evaluation Time: 06:10 Condition: Re-examined, Improved Medical Decision Making Medical Decision Making: Time: --05:05 Impression: --Palpitations and Anxiety Plan: --ECG --Alcohol Serum --labs --Troponin --ED urine dip -- test --Librium 50mg pO --Zofran Inj 4mg IV --lunchroom monitor Reassess -- Scribe Attestation: Documented by William Moran acting as a scribe for Georgina Chaney MD. Provider Attestation: All medical record entries made by the Scribe were at my direction and personally dictated by me. I have reviewed the chart and agree that the record accurately reflects my personal performance of the history, physical exam, medical decision making, and the department course for this patient. I have also personally directed, reviewed, and agree with the discharge instructions and disposition. Disposition - Clinical Impression Clinical Impression: Palpitations, Anxiety disorder, Alcohol abuse - Patient ED Disposition Is Patient to be Admitted: No Doctor Will See Patient In The: Office Counseled Patient/Family Regarding: Studies Performed, Diagnosis, Need For Followup - Disposition Referrals: Johanne Delaney MD [Primary Care Provider] - Disposition: Routine/Home Disposition Time: 06:12 Condition: GOOD Additional Instructions: Follow up with your PCP in 2-3 days. Instructions: Palpitations (ED), Alcohol Intoxication (ED)
[2017-03-02 06:09] LABS: BLOOD UREA NITROGEN 8 mg/dl (7-17); CALCIUM 9.7 mg/dL (8.4-10.2); GFR AFRICAN-AMERICAN > 60; GFR NON-AFRICAN AMERICAN > 60
[2017-03-02 06:45] VITALS: BP 132/83; PULSE 85
--- NOTE | 2017-03-03 18:30 | CARD ---
APPROVED REPORT EKG Measurement Heart [id number] ME [id number] [id number] <Conclusion> Normal sinus rhythm
== END 2017-03-02 06:44 | disposition home or self-care (01) ==
LOC: H.ER 04:41
DX: R00.2 Palpitations (principal); F10.10 Alcohol abuse, uncomplicated; F41.9 Anxiety disorder, unspecified
CPT/HCPCS: 80048; 80320; 84484; 85025; 93005; 96374; 99282; J2405

== ENCOUNTER 2017-04-15 06:51 | Emergency (ER) | payer OTHER ==
[2017-04-15 06:51] VITALS: BMI 24.1
[2017-04-15 07:08] VITALS: O2SAT 99
[2017-04-15] MEDS ORDERED: Sodium Chloride 0.9% 1,000 ML IV STA (07:20)
--- NOTE | 2017-04-15 07:22 | ED PDOC ---
HPI: Abdomen Time Seen by Provider: 04/15/17 07:12 Chief Complaint (Nursing): Fever History Per: Patient Onset/Duration Of Symptoms: Hrs (3) Current Symptoms Are (Timing): Still Present Severity: Moderate Location Of Pain/Discomfort: Epigastric Quality Of Discomfort: Unable To Describe Associated Symptoms: Nausea, Vomiting. denies: Diarrhea Additional Complaint(s): Nausea and vomiting x 3 hours this AM. Assoc with mild epigastric pain. Denies blod in vomitus. No diarrhea or fever. Admits to ETOH consumption last night. Past Medical History Vital Signs: Last Vital Signs Temp 97.6 F 04/15/17 07:04 Pulse 116 H 04/15/17 07:04 Resp 18 04/15/17 07:04 BP 139/88 04/15/17 07:04 Pulse Ox 99 04/15/17 07:23 - Medical History PMH: Anxiety Denies: Diabetes, Hepatitis, HIV, HTN, Chronic Kidney Disease, Seizures, Sexually Transmitted Disease - Family History Family History: States: Unknown Family Hx - Home Medications Home Medications: Ambulatory Orders Medication Instructions Recorded Ondansetron [Zofran] 4 mg PO Q8H #10 tab 04/15/17 - Allergies Allergies/Adverse Reactions: Allergies Allergy/AdvReac Type Severity Reaction Status Date / Time No Known Allergies Allergy Verified 04/15/17 07:04 Review of Systems Constitutional: Negative for: Fever Gastrointestinal: Positive for: Nausea, Vomiting, Abdominal Pain Psych: Positive for: Anxiety Physical Exam - Physical Exam Appears: Positive for: Non-toxic, No Acute Distress Skin: Positive for: Normal Color, Warm, DRY ENT: Positive for: Other (Mucous membranes dry) Neck: Positive for: Normal, Painless ROM Cardiovascular/Chest: Positive for: Regular Rate, Rhythm, Tachycardia Respiratory: Positive for: CNT, Normal Breath Sounds Gastrointestinal/Abdominal: Positive for: Bowel Sounds, Soft. Negative for: Tenderness Extremity: Positive for: Normal ROM Neurologic/Psych: Positive for: Alert, Oriented. Negative for: Motor/Sensory Deficits - Laboratory Results Result Diagrams: 04/15/17 07:38 04/15/17 07:38 - ECG O2 Sat by Pulse Oximetry: 99 Disposition - Clinical Impression Clinical Impression: Gastritis, Dehydration - Patient ED Disposition Is Patient to be Admitted: No - Disposition Referrals: [facility] [Outside] Disposition: Routine/Home Disposition Time: 10:28 Condition: FAIR Prescriptions: Ondansetron [Zofran] 4 mg PO Q8H #10 tab Instructions: Gastritis, Dehydration, Adult (DC) Forms: [employer] ([place]ive[place])
[2017-04-15 07:43] LABS: BASO % 0.5 % (0.0-2.0); EOS % 0.4 % (0.0-4.0); HEMOGLOBIN 14.5 g/dL (12.0-16.0); LYMPH # 0.8 K/uL (1.0-4.3); LYMPH % 11.3 % (20.0-40.0); MEAN CELL VOLUME 101.8 fl (81.0-99.0); MEAN CORPUSCULAR HEMOGLOBIN 34.9 pg (27.0-31.0); MEAN CORPUSCULAR HGB CONC 34.3 g/dL (33.0-37.0); MEAN PLATELET VOLUME 6.5 fl (7.2-11.7); MONO # 0.6 K/uL (0.0-0.8); MONO % 8.7 % (0.0-10.0); NEUT # 5.4 K/uL (1.8-7.0); NEUT % 79.1 % (50.0-75.0); RBC 4.17 Mil/uL (3.80-5.20); RED CELL DISTRIBUTION WIDTH 12.2 % (11.5-14.5); WHITE BLOOD COUNT 6.8 K/uL (4.8-10.8)
[2017-04-15 08:14] LABS: ALB/GLOB RATIO 1.4 (1.0-2.1); ALBUMIN 4.7 g/dL (3.5-5.0); ALT/SGPT 55 U/L (9-52); AST/SGOT 57 U/L (14-36); BLOOD UREA NITROGEN 11 mg/dl (7-17); CALCIUM 9.5 mg/dL (8.4-10.2); GFR AFRICAN-AMERICAN > 60; GFR NON-AFRICAN AMERICAN > 60
[2017-04-15 10:50] VITALS: BP 112/68; PULSE 85; RESP 14; TEMP 98.2
== END 2017-04-15 10:49 | disposition home or self-care (01) ==
LOC: H.ER 06:51
DX: K29.70 Gastritis, unspecified, without bleeding (principal); E86.0 Dehydration; F41.9 Anxiety disorder, unspecified
CPT/HCPCS: 80053; 80320; 81025; 85025; 96374; 99283; J2405; J7040

== ENCOUNTER 2017-04-22 19:17 | Inpatient (IN) | payer OTHER ==
[2017-04-22 19:17] VITALS: BMI 24.1
[2017-04-22] MEDS ORDERED: Sodium Chloride 0.9% 1,000 ML IV STA ×2 (20:21→22:31)
--- NOTE | 2017-04-22 20:31 | ED PDOC ---
HPI: Hypertension/Hypotension Time Seen by Provider: 04/22/17 19:42 Chief Complaint (Nursing): Chest Pain Chief Complaint (Provider): Palpitations History Per: Patient History/Exam Limitations: no limitations Onset/Duration Of Symptoms: Hrs (earlier today) Current Symptoms Are (Timing): Still Present Associated Symptoms: denies: Chest Pain Quality Of Symptoms: Rapid Heart Rate Additional Complaint(s): 26 year old female presents to ED with complaints of palpitations since earlier today and has a history of anxiety. Patient admits to drinking alcohol today, which she states worsens her anxiety. (+) vomiting. (-) diarrhea, fever, chest pain, or SOB. PCP: Mary[facility] Past Medical History Reviewed: Historical Data, Nursing Documentation, Vital Signs Vital Signs: Last Vital Signs Temp 97.2 F L 04/22/17 19:30 Pulse 143 H 04/22/17 19:30 Resp 18 04/22/17 19:30 BP 142/94 H 04/22/17 19:30 Pulse Ox 99 04/22/17 19:30 - Medical History PMH: Anxiety, Depression Denies: Diabetes, Hepatitis, HIV, HTN, Chronic Kidney Disease, Seizures, Sexually Transmitted Disease - Family History Family History: States: Unknown Family Hx - Social History Alcohol: Social - Home Medications Home Medications: Ambulatory Orders Medication Instructions Recorded Escitalopram [Lexapro] 10 mg PO DAILY 04/22/17 Ethinyl Estradiol/Drospirenone 1 each PO DAILY 04/22/17 [Soo 28 Tablet] - Allergies Allergies/Adverse Reactions: Allergies Allergy/AdvReac Type Severity Reaction Status Date / Time No Known Allergies Allergy Verified 04/22/17 19:29 Review of Systems ROS Statement: Except As Marked, All Systems Reviewed And Found Negative Constitutional: Negative for: Fever Cardiovascular: Positive for: Palpitations. Negative for: Chest Pain Respiratory: Negative for: Shortness of Breath Gastrointestinal: Positive for: Vomiting. Negative for: Diarrhea Physical Exam - Reviewed Nursing Documentation Reviewed: Yes Vital Signs Reviewed: Yes - Physical Exam Appears: Positive for: Non-toxic, No Acute Distress Skin: Positive for: Normal Color, Warm, Dry Eye Exam: Positive for: Normal appearance, EOMI, PERRL Cardiovascular/Chest: Positive for: Regular Rate, Rhythm, Tachycardia Respiratory: Positive for: Normal Breath Sounds. Negative for: Respiratory Distress Gastrointestinal/Abdominal: Positive for: Normal Exam, Soft. Negative for: Tenderness Extremity: Positive for: Normal ROM. Negative for: Deformity Neurologic/Psych: Positive for: Alert, Oriented. Negative for: Motor/Sensory Deficits - Laboratory Results Result Diagrams: 04/23/17 04:30 04/23/17 04:30 - ECG Interpretation Of ECG: ST @ 132, PACs. O2 Sat by Pulse Oximetry: 99 (RA) Pulse Ox Interpretation: Normal - Critical Care Total Time (In Min): 45 Medical Decision Making Medical Decision Makin Initial impression: palpitations, alcohol intoxication Initial plan: * EKG * EtOH serum * Labs * UDrug screen * TSH * UDip * UPreg * D Dimer * PTT/PT * NS IV * Zofran Inj 4mg IVP * Re-eval Pt remains tachycardic despite 1 L IVF. Pt denies daily EtOH use, states she drinks only on weekends. Denies LOC or seizure-like activity, states she was drinking all day for [employer], went home and started feeling palpitations and vomiting. Scribe Attestation: Documented by Tesah Friend acting as a scribe Yelitza Ayon MD. Scribe Attestation: All medical record entries made by the Scribe were at my direction and personally dictated by me. I have reviewed the chart and agree that the record accurately reflects my personal performance of the history, physical exam, medical decision making, and the department course for this patient. I have also personally directed, reviewed, and agree with the discharge instructions and disposition. Disposition - Clinical Impression Clinical Impression: Alcoholic ketoacidosis - Patient ED Disposition Is Patient to be Admitted: Yes - Disposition Disposition Time: 23:57 Condition: GUARDED - Pt Status Changed To: Hospital Disposition Of: Inpatient - Admit Certification Admit to Inpatient:: After my assessment, the patient will require hospitalization for at least two midnights. This is because of the severity of symptoms shown, intensity of services needed, and/or the medical risk in this patient being treated as an outpatient. - POA Present On Arrival: None
[2017-04-22 20:47] LABS: BASO % 0.2 % (0.0-2.0); HEMOGLOBIN 17.2 g/dL (12.0-16.0); LYMPH # 0.5 K/uL (1.0-4.3); LYMPH % 3.6 % (20.0-40.0); MEAN CELL VOLUME 104.8 fl (81.0-99.0); MEAN CORPUSCULAR HGB CONC 33.4 g/dL (33.0-37.0); MEAN PLATELET VOLUME 6.6 fl (7.2-11.7); MONO # 0.8 K/uL (0.0-0.8); MONO % 6.5 % (0.0-10.0); NEUT # 11.4 K/uL (1.8-7.0); NEUT % 89.7 % (50.0-75.0); NRBC % 0.1 % (0.0-0.0); PLATELET COUNT 302 K/uL (130-400); RBC 4.91 Mil/uL (3.80-5.20); RED CELL DISTRIBUTION WIDTH 12.6 % (11.5-14.5); WHITE BLOOD COUNT 12.7 K/uL (4.8-10.8)
[2017-04-22 21:07] LABS: BARBITURATES, UR NEGATIVE (NEGATIVE); BENZODIAZEPINES, UR NEGATIVE (NEGATIVE); OPIATES, UR NEGATIVE (NEGATIVE); PHENCYCLIDINE, UR NEGATIVE (NEGATIVE)
[2017-04-22 21:29] LABS: PROTHROMBIN TIME 10.6 Seconds (9.8-13.1)
[2017-04-22 21:30] LABS: INR 0.9 (0.9-1.2); PARTIAL THROMBOPLASTIN TIME 30.4 Seconds (25.6-37.1)
[2017-04-22 22:10] LABS: BANDS 4 % (0-2); EOSINOPHIL 1 % (0-7); LYMPHOCYTE 5 % (20-50); MONOCYTE 5 % (0-10); NEUTROPHIL 85 % (42-75); TOTAL CELLS COUNTED 100
[2017-04-22 22:11] LABS: PLATELET ESTIMATE NORMAL (NORMAL)
[2017-04-22 22:28] LABS: ALB/GLOB RATIO 1.1 (1.0-2.1); ALBUMIN 5.5 g/dL (3.5-5.0); ALT/SGPT 50 U/L (9-52); AST/SGOT 105 U/L (14-36); BLOOD UREA NITROGEN 8 mg/dl (7-17); CALCIUM 9.7 mg/dL (8.4-10.2); GFR AFRICAN-AMERICAN > 60; GFR NON-AFRICAN AMERICAN > 60
[2017-04-22 22:41] LABS: PARTIAL THROMBOPLASTIN TIME 30.8 Seconds (25.6-37.1); PROTHROMBIN TIME 10.6 Seconds (9.8-13.1)
[2017-04-22 22:50] LABS: ABG ALLEN TEST YES; ARTERIAL BLOOD GAS HCO3 10.6 mmol/L (21-28); ARTERIAL BLOOD GAS O2 SAT 98.2 % (95-98); ARTERIAL BLOOD GAS PCO2 18 mm/Hg (35-45); ARTERIAL BLOOD GAS PH 7.21 (7.35-7.45); ARTERIAL BLOOD GAS PO2 118 mm/Hg (80-100); ARTERIAL BLOOD GAS TCO2 7.8 mmol/L (22-28)
[2017-04-22] MEDS ORDERED: Multivitamin (MVI) 10 ML, Thiamine 100 MG, Folic Acid 1 MG in Sodium Chloride 0.9% 1,00... IV ONE (23:11)
[2017-04-22] MEDS ORDERED: Sodium Chloride 0.9% 1,000 ML IV SCH (23:30)
--- NOTE | 2017-04-22 23:35 | CP.PCM.CON ---
History of Present Illness - History of Present Illness History of Present Illness: Attending: Dr Brian Robbins Reason for Consult: Critical care management Chief Complaint: Palpitation/Chest Pain The patient was seen and examined in the ED HPI: 26 years old female with hx of Alcoholic abuse, anxiety and palpitation, comes with 2 hours of chest tightness, vomiting with nausea tachycardia and [id number]. She had been celebrating and had been drinking Alcohol. Denies Fever, cough, diarrhea, dysuria, SOB. PMH: Anxiety; Palpitation PSH: Denies SH: Never smoked; No illegal drug use; Alcohol Socially; Live with family; Unemployed FH: Father Alcoholic Brother Alcoholic, Suicide Allergy: NKDA Medication: Denies - Medical History PMH: Anxiety, Depression Denies: Diabetes, Hepatitis, HIV, HTN, Chronic Kidney Disease, Seizures, Sexually Transmitted Disease - Family History Family History: States: Unknown Family Hx - Social History Alcohol: Social - Home Medications Home Medications: Review of Systems - Constitutional Constitutional: absent: Anorexia, Chills, Fatigue, Fever, Headache - EENT Eyes: absent: Diplopia, Floaters, Requires Corrective Lenses, Sees Flashes Ears: absent: Decreased Hearing, Ear Discharge, Ear Pain, Tinnitus Nose/Mouth/Throat: absent: Epistaxis, Nasal Congestion, Sinus Pain, Sinus Pressure - Cardiovascular Cardiovascular: Palpitations. absent: Dyspnea, Edema Additional comments: Chest Pressure - Respiratory Respiratory: absent: Cough, Dyspnea, Wheezing, Chest Congestion - Gastrointestinal Gastrointestinal: Nausea, Vomiting. absent: Abdominal Pain, Constipation, Diarrhea - Genitourinary Genitourinary: absent: Dysuria, Flank Pain, Hematuria, Urinary Frequency - Musculoskeletal Musculoskeletal: absent: Arthralgias, Muscle Weakness, Neck Pain - Integumentary Integumentary: absent: Pruritus, Rash, Skin Ulcer, Sores, Striae, Swelling - Neurological Neurological: absent: Confusion, Dizziness, Focal Weakness, Loss of Vision, Weakness - Psychiatric Psychiatric: Anxiety. absent: Change in Appetite, Depression, Panic Attacks, Suicidal Ideation - Endocrine Endocrine: absent: Palpitations, Polydipsia, Polyphagia, Polyuria - Hematologic/Lymphatic Hematologic: absent: Easy Bleeding, Easy Bruising Past Patient History - Past Medical History & Family History Past Medical History?: No - Past Social History Smoking Status: Never Smoked Chewing Tobacco Use: No Cigar Use: No Alcohol: Social Home Situation {Lives}: With Family - CARDIAC Hx Cardiac Disorders: Yes Hx Hypertension: No Other/Comment: Palpitation - PULMONARY Hx Respiratory Disorders: No Hx Tuberculosis: No - NEUROLOGICAL Hx Neurological Disorder: No Hx Seizures: No - HEENT Hx HEENT Problems: No - RENAL Hx Chronic Kidney Disease: No - ENDOCRINE/METABOLIC Hx Endocrine Disorders: No - HEMATOLOGICAL/ONCOLOGICAL Hx Blood Disorders: No Hx Human Immunodeficiency Virus (HIV): No - INTEGUMENTARY Hx Dermatological Problems: No - MUSCULOSKELETAL/RHEUMATOLOGICAL Hx Musculoskeletal Disorders: No - GASTROINTESTINAL Hx Gastrointestinal Disorders: No - GENITOURINARY/GYNECOLOGICAL Hx Sexually Transmitted Disorders: No - PSYCHIATRIC Hx Anxiety: Yes Hx Depression: Yes - SURGICAL HISTORY Hx Surgeries: No - ANESTHESIA Hx Anesthesia: No Meds Allergies/Adverse Reactions: Allergies Allergy/AdvReac Type Severity Reaction Status Date / Time No Known Allergies Allergy Verified 04/22/17 19:29 - Medications Medications: Current Medications Chlordiazepoxide (Librium) 25 mg PO Q6 [facility] Multivitamins/Vitamin C 10 ml/Thiamine HCl 100 mg/ Folic Acid 1 mg/ Sodium Chloride 1,011.2 mls @ 252.8 mls/hr IV .Q4H ONE Stop: 04/23/17 03:10 Sodium Chloride (Sodium Chloride 0.9%) 1,000 mls @ 150 mls/hr IV .Q6H40M NANCI Stop: 04/23/17 23:19 Ondansetron HCl (Zofran Inj) 4 mg IVP Q6 PRN PRN Reason: Nausea/Vomiting Physical Exam - Constitutional Appears: No Acute Distress - Head Exam Head Exam: ATRAUMATIC, NORMAL INSPECTION, NORMOCEPHALIC - Eye Exam Eye Exam: EOMI Pupil Exam: NORMAL ACCOMODATION, PERRL - ENT Exam ENT Exam: Mucous Membranes Moist, Normal Exam, Normal External Ear Exam - Neck Exam Neck exam: Positive for: Full Rom, Normal Inspection. Negative for: Lymphadenopathy, Tenderness - Respiratory Exam Respiratory Exam: Clear to Auscultation Bilateral. absent: Rales, Rhonchi, Wheezes - Cardiovascular Exam Cardiovascular Exam: REGULAR RHYTHM, RRR, +S1, +S2. absent: Gallop, JVD - GI/Abdominal Exam GI & Abdominal Exam: Normal Bowel Sounds, Soft. absent: Mass, Organomegaly, Tenderness - Rectal Exam Rectal Exam: Deferred - Extremities Exam Extremities exam: Positive for: full ROM, normal inspection. Negative for: calf tenderness, joint swelling, pedal edema - Back Exam Back exam: NORMAL INSPECTION. absent: CVA tenderness (L), CVA tenderness (R), tenderness - Neurological Exam Neurological exam: Alert, CN II-XII Intact, Oriented x3, Reflexes Normal - Psychiatric Exam Psychiatric exam: Normal Affect, Normal Mood - Skin Skin Exam: Dry, Intact, Normal Color, Warm Results - Vital Signs Recent Vital Signs: Last Vital Signs Temp 97.2 F L 04/22/17 19:30 Pulse 143 H 04/22/17 19:30 Resp 18 04/22/17 19:30 BP 142/94 H 04/22/17 19:30 Pulse Ox 99 04/22/17 20:33 - Labs Result Diagrams: 04/22/17 20:26 04/22/17 20:26 Labs: Laboratory Results - last 24 hr 04/22/17 04/22/17 04/22/17 20:26 20:26 20:26 WBC 12.7 H D RBC 4.91 Hgb 17.2 H D Hct 51.5 H MCV 104.8 H D MCH 35.0 H MCHC 33.4 RDW 12.6 Plt Count 302 MPV 6.6 L Neut % (Auto) 89.7 H Lymph % (Auto) 3.6 L [place] % (Auto) 6.5 Eos % (Auto) 0.0 Baso % (Auto) 0.2 Neut # (Auto) 11.4 H Lymph # (Auto) 0.5 L [place] # (Auto) 0.8 Eos # (Auto) 0.0 Baso # (Auto) 0.0 Neutrophils % (Manual) 85 H Band Neutrophils % 4 H Lymphocytes % (Manual) 5 L Monocytes % (Manual) 5 Eosinophils % (Manual) 1 Platelet Estimate Normal RBC Morphology Normal PT 10.6 INR 0.9 APTT 30.4 D-Dimer, Quantitative Cancelled pCO2 pO2 HCO3 ABG pH ABG Total CO2 ABG O2 Saturation ABG Base Excess Dalton Test ABG Potassium A-a O2 Difference Glucose Lactate FiO2 Crit Value Called To Crit Value Called By Crit Value Read Back Blood Gas Notified Time Sodium 141 Potassium 5.5 H Chloride 96 L Carbon Dioxide < 5 L* D Anion Gap 46 H BUN 8 Creatinine 0.6 L Est GFR ( Amer) > 60 Est GFR (Non-Af Amer) > 60 Random Glucose 120 H Calcium 9.7 Total Bilirubin 1.2 AST 105 H D ALT 50 Alkaline Phosphatase 117 Total Protein 10.4 H Albumin 5.5 H Globulin 4.9 H Albumin/Globulin Ratio 1.1 TSH 3rd Generation 0.81 Arterial Blood Potassium Urine Opiates Screen Urine Methadone Screen Ur Barbiturates Screen Ur Phencyclidine Scrn Ur Amphetamines Screen U Benzodiazepines Scrn U Oth Cocaine Metabols U Cannabinoids Screen Alcohol, Quantitative 193 H 04/22/17 04/22/17 04/22/17 20:40 22:24 22:42 WBC RBC Hgb Hct MCV MCH MCHC RDW Plt Count MPV Neut % (Auto) Lymph % (Auto) [place] % (Auto) Eos % (Auto) Baso % (Auto) Neut # (Auto) Lymph # (Auto) [place] # (Auto) Eos # (Auto) Baso # (Auto) Neutrophils % (Manual) Band Neutrophils % Lymphocytes % (Manual) Monocytes % (Manual) Eosinophils % (Manual) Platelet Estimate RBC Morphology PT 10.6 INR 1.0 APTT 30.8 D-Dimer, Quantitative 205 pCO2 18 L* pO2 118 H HCO3 10.6 L ABG pH 7.21 L ABG Total CO2 7.8 L ABG O2 Saturation 98.2 H ABG Base Excess -18.4 L Dalton Test Yes ABG Potassium 5.7 H A-a O2 Difference 9.0 Glucose 88 Lactate 4.2 H* FiO2 21.0 Crit Value Called To Dr noe ni Crit Value Called By 292 Crit Value Read Back Y Blood Gas Notified Time 2249 Sodium 131.0 L Potassium Chloride 101.0 Carbon Dioxide Anion Gap BUN Creatinine Est GFR ( Amer) Est GFR (Non-Af Amer) Random Glucose Calcium Total Bilirubin AST ALT Alkaline Phosphatase Total Protein Albumin Globulin Albumin/Globulin Ratio TSH 3rd Generation Arterial Blood Potassium 5.7 H Urine Opiates Screen Negative Urine Methadone Screen Negative Ur Barbiturates Screen Negative Ur Phencyclidine Scrn Negative Ur Amphetamines Screen Negative U Benzodiazepines Scrn Negative U Oth Cocaine Metabols Negative U Cannabinoids Screen Negative Alcohol, Quantitative - EKG Data EKG comments: Sinus Tachycardia 132/min Assessment & Plan - Assessment and Plan (Free Text) Assessment: #. Alcholic Ketoacidosis #. Palpitation with Sinus tachycardia #. Alcoholic intoxication #. Erythrocytosis #. Leukocytosis Plan: 26 years old female with hx of Alcoholic abuse, anxiety and palpitation, comes with 2 hours of chest tightness, vomiting with nausea tachycardia and [id number]. She had been celebrating and had been drinking Alcohol. Denies Fever, cough, diarrhea, dysuria, SOB. #. Alcholic Ketoacidosis in patient binge drinking and probably not eating, has elevated lactic acid of 4.2 and Ketone in urine with a pH of 7.21 and HCO3 of < 5 on the BMP. The patient received 3L of NS in ED. I will continue with D5/NS, Banana bag including folic Acid, Thiamine with Multivitamins, follow Lactic Acid, Ph, Bicarbonate and Ketones in Urine. No need for Exogenus Insulin #. Palpitation with Sinus tachycardia is caused by the Alcohol and Acidosis - Telemetry monitoring - Treat the acidosis #. Alcoholic intoxication Prevention of Alcohol withdrawal symptoms - IV Fluids - Librium - Ativan needed #. Erythrocytosis with macrocytosis, versed Hemoconcentration from dehydration - IV fluids - Follow Hb/ hematocrit #.Stress ulcer Prophylaxis with pantoprazole. #. DVT Prophylaxis with SCD #. Leukocytosis probably reactive - Follow WBC #. Code Status: Full - Date & Time Date: 04/22/17 Time: 23:35
[2017-04-23 00:20] LABS: TROPONIN I 0.021 ng/mL (0.00-0.120)
[2017-04-23] MEDS: Dextrose 5%/0.9% NS 1,000 ML IV SCH ×2 (04:32→07:55)
[2017-04-23 04:46] LABS: VENOUS BLOOD GAS PCO2 23 mmHg (40-60); VENOUS BLOOD GAS PO2 55 mm/Hg (30-55); VENOUS BLOOD PH 7.23 (7.32-7.43)
[2017-04-23 04:48] LABS: BASO % 0.3 % (0.0-2.0); HEMOGLOBIN 14.1 g/dL (12.0-16.0); LYMPH # 0.5 K/uL (1.0-4.3); LYMPH % 3.3 % (20.0-40.0); MEAN CELL VOLUME 102.9 fl (81.0-99.0); MEAN CORPUSCULAR HEMOGLOBIN 35.8 pg (27.0-31.0); MEAN CORPUSCULAR HGB CONC 34.7 g/dL (33.0-37.0); MEAN PLATELET VOLUME 6.5 fl (7.2-11.7); MONO # 1.5 K/uL (0.0-0.8); MONO % 10.4 % (0.0-10.0); NEUT # 12.5 K/uL (1.8-7.0); NRBC % 0.2 % (0.0-0.0); RBC 3.96 Mil/uL (3.80-5.20); RED CELL DISTRIBUTION WIDTH 12.6 % (11.5-14.5); WHITE BLOOD COUNT 14.6 K/uL (4.8-10.8)
[2017-04-23 05:24] LABS: ALB/GLOB RATIO 1.4 (1.0-2.1); ALBUMIN 4.6 g/dL (3.5-5.0); ALT/SGPT 51 U/L (9-52); AST/SGOT 70 U/L (14-36); BLOOD UREA NITROGEN 5 mg/dl (7-17); CALCIUM 8.9 mg/dL (8.4-10.2); GFR AFRICAN-AMERICAN > 60; GFR NON-AFRICAN AMERICAN > 60
--- NOTE | 2017-04-23 07:36 | CP.PCM.HP ---
History of Present Illness - History of Present Illness History of Present Illness: pt admitted for alcoholic ketoacidosis. at present pt feels better but came in w / palpitations. has h/o anxiety. states was drinking etoh starting 11a yesterday. no f/c, n/v/d. bw noted w/ acidosis. k 5.2, co2 8. pt denies medical hx except anxiety. Present on Admission - Present on Admission Any Indicators Present on Admission: No Review of Systems - Cardiovascular Cardiovascular: As Per HPI, Palpitations, Rapid Heart Rate Past Patient History - Past Medical History & Family History Past Medical History?: No - Past Social History Smoking Status: Never Smoked Chewing Tobacco Use: No Cigar Use: No Alcohol: Social Home Situation {Lives}: With Family - CARDIAC Hx Cardiac Disorders: Yes Hx Hypertension: No Other/Comment: Palpitation - PULMONARY Hx Respiratory Disorders: No Hx Tuberculosis: No - NEUROLOGICAL Hx Neurological Disorder: No Hx Seizures: No - HEENT Hx HEENT Problems: No - RENAL Hx Chronic Kidney Disease: No - ENDOCRINE/METABOLIC Hx Endocrine Disorders: No - HEMATOLOGICAL/ONCOLOGICAL Hx Blood Disorders: No Hx Human Immunodeficiency Virus (HIV): No - INTEGUMENTARY Hx Dermatological Problems: No - MUSCULOSKELETAL/RHEUMATOLOGICAL Hx Musculoskeletal Disorders: No - GASTROINTESTINAL Hx Gastrointestinal Disorders: No - GENITOURINARY/GYNECOLOGICAL Hx Sexually Transmitted Disorders: No - PSYCHIATRIC Hx Anxiety: Yes Hx Depression: Yes - SURGICAL HISTORY Hx Surgeries: No - ANESTHESIA Hx Anesthesia: No Meds Allergies/Adverse Reactions: Allergies Allergy/AdvReac Type Severity Reaction Status Date / Time No Known Allergies Allergy Verified 04/22/17 19:29 Physical Exam - Constitutional Appears: Well, Non-toxic, No Acute Distress - Head Exam Head Exam: ATRAUMATIC, NORMAL INSPECTION, NORMOCEPHALIC - Eye Exam Eye Exam: EOMI, Normal appearance, PERRL Pupil Exam: NORMAL ACCOMODATION, PERRL - ENT Exam ENT Exam: Mucous Membranes Moist, Normal Exam - Neck Exam Neck exam: Positive for: Normal Inspection - Respiratory Exam Respiratory Exam: Clear to Auscultation Bilateral, NORMAL BREATHING PATTERN - Cardiovascular Exam Cardiovascular Exam: REGULAR RHYTHM, RRR, +S1, +S2 - GI/Abdominal Exam GI & Abdominal Exam: Normal Bowel Sounds, Soft. absent: Tenderness - Extremities Exam Extremities exam: Positive for: full ROM, normal capillary refill, normal inspection, pedal pulses present - Back Exam Back exam: NORMAL INSPECTION - Neurological Exam Neurological exam: Alert, CN II-XII Intact, Normal Gait, Oriented x3, Reflexes Normal - Psychiatric Exam Psychiatric exam: Normal Affect, Normal Mood - Skin Skin Exam: Dry, Intact, Normal Color, Warm Results - Vital Signs Recent Vital Signs: Last Vital Signs Temp 97.2 F L 04/22/17 19:30 Pulse 128 H 04/23/17 06:23 Resp 18 04/23/17 06:23 BP 138/88 04/23/17 06:23 Pulse Ox 100 04/23/17 06:23 - Labs Result Diagrams: 04/23/17 04:30 04/23/17 04:30 Labs: Laboratory Results - last 24 hr 04/22/17 04/22/17 04/22/17 20:26 20:26 20:26 WBC 12.7 H D RBC 4.91 Hgb 17.2 H D Hct 51.5 H MCV 104.8 H D MCH 35.0 H MCHC 33.4 RDW 12.6 Plt Count 302 MPV 6.6 L Neut % (Auto) 89.7 H Lymph % (Auto) 3.6 L [place] % (Auto) 6.5 Eos % (Auto) 0.0 Baso % (Auto) 0.2 Neut # (Auto) 11.4 H Lymph # (Auto) 0.5 L [place] # (Auto) 0.8 Eos # (Auto) 0.0 Baso # (Auto) 0.0 Neutrophils % (Manual) 85 H Band Neutrophils % 4 H Lymphocytes % (Manual) 5 L Monocytes % (Manual) 5 Eosinophils % (Manual) 1 Platelet Estimate Normal RBC Morphology Normal PT 10.6 INR 0.9 APTT 30.4 D-Dimer, Quantitative Cancelled pCO2 pO2 HCO3 ABG pH ABG Total CO2 ABG O2 Saturation ABG Base Excess ABG Carboxyhemoglobin POC ABG HHb (Measured) ABG Methemoglobin Dalton Test ABG Potassium VBG pH VBG pCO2 VBG HCO3 VBG O2 Sat (Calc) VBG Base Excess VBG Hgb O2 Saturation A-a O2 Difference Hemoglobin Glucose Lactate FiO2 Crit Value Called To Crit Value Called By Crit Value Read Back Blood Gas Notified Time Sodium 141 Potassium 5.5 H Chloride 96 L Carbon Dioxide < 5 L* D Anion Gap 46 H BUN 8 Creatinine 0.6 L Est GFR ( Amer) > 60 Est GFR (Non-Af Amer) > 60 Random Glucose 120 H Lactic Acid Calcium 9.7 Total Bilirubin 1.2 AST 105 H D ALT 50 Alkaline Phosphatase 117 Total Creatine Kinase Troponin I Total Protein 10.4 H Albumin 5.5 H Globulin 4.9 H Albumin/Globulin Ratio 1.1 TSH 3rd Generation 0.81 Arterial Blood Potassium Urine Opiates Screen Urine Methadone Screen Ur Barbiturates Screen Ur Phencyclidine Scrn Ur Amphetamines Screen U Benzodiazepines Scrn U Oth Cocaine Metabols U Cannabinoids Screen Alcohol, Quantitative 193 H 04/22/17 04/22/17 04/22/17 20:40 22:24 22:42 WBC RBC Hgb Hct MCV MCH MCHC RDW Plt Count MPV Neut % (Auto) Lymph % (Auto) [place] % (Auto) Eos % (Auto) Baso % (Auto) Neut # (Auto) Lymph # (Auto) [place] # (Auto) Eos # (Auto) Baso # (Auto) Neutrophils % (Manual) Band Neutrophils % Lymphocytes % (Manual) Monocytes % (Manual) Eosinophils % (Manual) Platelet Estimate RBC Morphology PT 10.6 INR 1.0 APTT 30.8 D-Dimer, Quantitative 205 pCO2 18 L* pO2 118 H HCO3 10.6 L ABG pH 7.21 L ABG Total CO2 7.8 L ABG O2 Saturation 98.2 H ABG Base Excess -18.4 L ABG Carboxyhemoglobin POC ABG HHb (Measured) ABG Methemoglobin Dalton Test Yes ABG Potassium 5.7 H VBG pH VBG pCO2 VBG HCO3 VBG O2 Sat (Calc) VBG Base Excess VBG Hgb O2 Saturation A-a O2 Difference 9.0 Hemoglobin Glucose 88 Lactate 4.2 H* FiO2 21.0 Crit Value Called To Dr noe ni Crit Value Called By 292 Crit Value Read Back Y Blood Gas Notified Time 2248 Sodium 131.0 L Potassium Chloride 101.0 Carbon Dioxide Anion Gap BUN Creatinine Est GFR ( Amer) Est GFR (Non-Af Amer) Random Glucose Lactic Acid Calcium Total Bilirubin AST ALT Alkaline Phosphatase Total Creatine Kinase Troponin I Total Protein Albumin Globulin Albumin/Globulin Ratio TSH 3rd Generation Arterial Blood Potassium 5.7 H Urine Opiates Screen Negative Urine Methadone Screen Negative Ur Barbiturates Screen Negative Ur Phencyclidine Scrn Negative Ur Amphetamines Screen Negative U Benzodiazepines Scrn Negative U Oth Cocaine Metabols Negative U Cannabinoids Screen Negative Alcohol, Quantitative 04/22/17 04/23/17 04/23/17 23:56 04:30 04:30 WBC 14.6 H RBC 3.96 Hgb 14.1 D Hct 40.7 MCV 102.9 H MCH 35.8 H MCHC 34.7 RDW 12.6 Plt Count 240 MPV 6.5 L Neut % (Auto) 86.0 H Lymph % (Auto) 3.3 L [place] % (Auto) 10.4 H Eos % (Auto) 0.0 Baso % (Auto) 0.3 Neut # (Auto) 12.5 H Lymph # (Auto) 0.5 L [place] # (Auto) 1.5 H Eos # (Auto) 0.0 Baso # (Auto) 0.0 Neutrophils % (Manual) Band Neutrophils % Lymphocytes % (Manual) Monocytes % (Manual) Eosinophils % (Manual) Platelet Estimate RBC Morphology PT INR APTT D-Dimer, Quantitative pCO2 pO2 HCO3 ABG pH ABG Total CO2 ABG O2 Saturation ABG Base Excess ABG Carboxyhemoglobin POC ABG HHb (Measured) ABG Methemoglobin Dalton Test ABG Potassium VBG pH VBG pCO2 VBG HCO3 VBG O2 Sat (Calc) VBG Base Excess VBG Hgb O2 Saturation A-a O2 Difference Hemoglobin Glucose Lactate FiO2 Crit Value Called To Crit Value Called By Crit Value Read Back Blood Gas Notified Time Sodium 134 Potassium 5.2 H Chloride 99 Carbon Dioxide 8 L* D Anion Gap 32 H BUN 5 L Creatinine 0.6 L Est GFR ( Amer) > 60 Est GFR (Non-Af Amer) > 60 Random Glucose 103 Lactic Acid Calcium 8.9 Total Bilirubin 1.3 AST 70 H D ALT 51 Alkaline Phosphatase 74 Total Creatine Kinase 515 H Troponin I 0.0210 < 0.0120 Total Protein 7.9 Albumin 4.6 Globulin 3.3 Albumin/Globulin Ratio 1.4 TSH 3rd Generation Arterial Blood Potassium Urine Opiates Screen Urine Methadone Screen Ur Barbiturates Screen Ur Phencyclidine Scrn Ur Amphetamines Screen U Benzodiazepines Scrn U Oth Cocaine Metabols U Cannabinoids Screen Alcohol, Quantitative < 10 04/23/17 04/23/17 04:43 05:14 WBC RBC Hgb Hct MCV MCH MCHC RDW Plt Count MPV Neut % (Auto) Lymph % (Auto) [place] % (Auto) Eos % (Auto) Baso % (Auto) Neut # (Auto) Lymph # (Auto) [place] # (Auto) Eos # (Auto) Baso # (Auto) Neutrophils % (Manual) Band Neutrophils % Lymphocytes % (Manual) Monocytes % (Manual) Eosinophils % (Manual) Platelet Estimate RBC Morphology PT INR APTT D-Dimer, Quantitative pCO2 pO2 55 HCO3 ABG pH ABG Total CO2 ABG O2 Saturation ABG Base Excess ABG Carboxyhemoglobin 3.1 H POC ABG HHb (Measured) 6.9 H ABG Methemoglobin 3.0 Dalton Test ABG Potassium VBG pH 7.23 L VBG pCO2 23 L VBG HCO3 12.1 VBG O2 Sat (Calc) 92.6 H VBG Base Excess -16.0 L VBG Hgb O2 Saturation 86.9 L A-a O2 Difference Hemoglobin 14.5 Glucose Lactate FiO2 Crit Value Called To Crit Value Called By Crit Value Read Back Blood Gas Notified Time Sodium Potassium Chloride Carbon Dioxide Anion Gap BUN Creatinine Est GFR ( Amer) Est GFR (Non-Af Amer) Random Glucose Lactic Acid 0.5 L Calcium Total Bilirubin AST ALT Alkaline Phosphatase Total Creatine Kinase Troponin I Total Protein Albumin Globulin Albumin/Globulin Ratio TSH 3rd Generation Arterial Blood Potassium Urine Opiates Screen Urine Methadone Screen Ur Barbiturates Screen Ur Phencyclidine Scrn Ur Amphetamines Screen U Benzodiazepines Scrn U Oth Cocaine Metabols U Cannabinoids Screen Alcohol, Quantitative Assessment & Plan (1) Alcoholic ketoacidosis Assessment and Plan: icu care ivf monitor bw incl abg Status: Acute (2) Alcohol use Assessment and Plan: libirium, monitor for withdrawal Status: Acute (3) Palpitations Assessment and Plan: not feeling at present, hr 120s ?? anxiety related Status: Acute (4) DVT prophylaxis Assessment and Plan: scd and ae hose, ambulation Status: Acute Decision To Admit - Pt Status Changed To: Hospital Disposition Of: Inpatient - Admit Certification Admit to Inpatient:: After my assessment, the patient will require hospitalization for at least two midnights. This is because of the severity of symptoms shown, intensity of services needed, and/or the medical risk in this patient being treated as an outpatient. - . Bed Request Type: Intensive Care Admitting Physician: Rosendo Torres
[2017-04-23 08:23] VITALS: TEMP 98.4
[2017-04-23] MEDS ORDERED: Pantoprazole 40 mg EC Tab PO SCH (09:00)
--- NOTE | 2017-04-23 09:10 | CARD ---
APPROVED REPORT EKG Measurement Heart [id number] NH [id number] <Conclusion> Sinus tachycardia with premature atrial complexes Otherwise normal ECG
[2017-04-23] MEDS ORDERED: Pantoprazole 40 mg EC Tab PO ONE (09:18)
--- NOTE | 2017-04-23 10:56 | CP.PCM.PN ---
Subjective - Date & Time of Evaluation Date of Evaluation: 04/23/17 Time of Evaluation: 10:45 - Subjective Subjective: Pt was admitted last night with grossly abnormal labs and vomiting after a darnell drinking, I was given a detailed signs out by Dr Spencer, who consulted this Pt for ICU admission. Pt was still in ER this morning waiting for bed in ICU. Due to her being young and with life threatening electrolytes abnormalities, ICU staff and I tried to make quick arrangement to bring her to ICU, but I was told by ER Nurse that patient wanted to go home. I saw the patient in ER. She was alert, oriented x 3 and was sober, and was very well mannered when spoke to me. She told me she did not want to stay in hospital and she was feeling much better after treatment she received in ER. I told her she was still critical and needed ICU admission and treatment with close monitoring of her vitals and blood work and she was still in life threatening clinical condition and I insisted her not to leave hospital. ER nurse was also present while I was talking to her. But , pt very politely refused to be admitted and asked her to discharged her AMA. She asked for the copy of her lab and said she will see her primary care doctor. Again, patient was fully alert and oriented and fully capable of making her decision. She was not intoxicated, clinically and was not in any distress and her vital signs were stable. Patient signed AMA , witness by ER nurse and I and she would leave . Objective - Vital Signs/Intake and Output Vital Signs (last 24 hours): Temp Pulse Resp BP Pulse Ox 98.4 F 122 H 17 125/81 99 04/23/17 08:22 04/23/17 08:15 04/23/17 08:15 04/23/17 08:15 04/23/17 08:15 - Medications Medications: Current Medications Chlordiazepoxide (Librium) 25 mg PO Q6 NANCI Last Admin: 04/23/17 09:25 Dose: 25 mg Dextrose/Sodium Chloride (Dextrose 5%/0.9% Ns 1000 Ml) 1,000 mls @ 150 mls/hr IV .Q6H40M NANCI Stop: 04/24/17 01:04 Last Admin: 04/23/17 04:32 Dose: 150 mls/hr Lorazepam (Ativan) 1 mg IVP Q6 PRN PRN Reason: Agitation Ondansetron HCl (Zofran Inj) 4 mg IVP Q6 PRN PRN Reason: Nausea/Vomiting Pantoprazole Sodium (Protonix Ec Tab) 40 mg PO DAILY NANCI Last Admin: 04/23/17 09:23 Dose: 40 mg - Labs Labs: 04/23/17 04:30 04/23/17 04:30 PT 10.6 Seconds (9.8-13.1) 04/22/17 22:24 INR 1.0 (0.9-1.2) 04/22/17 22:24 APTT 30.8 Seconds (25.6-37.1) 04/22/17 22:24
[2017-04-23 11:09] VITALS: BP 137/83; PULSE 132; RESP 21
[2017-04-23 11:09] LABS: SQUAMOUS EPITHIAL 1 /hpf (0-5); URINE BILIRUBIN NEGATIVE (NEGATIVE); URINE BLOOD MODERATE (NEGATIVE); URINE CLARITY CLEAR (Clear); URINE COLOR YELLOW (YELLOW); URINE GLUCOSE (UA) 150 mg/dL (Normal); URINE LEUKOCYTE ESTERASE TRACE Leu/uL (Negative); URINE PROTEIN NEGATIVE (NEGATIVE); URINE UROBILINOGEN 0.2-1.0 mg/dL (0.2-1.0)
[2017-04-23 16:51] VITALS: O2SAT 99
--- NOTE | 2017-04-24 07:35 | CARD ---
APPROVED REPORT EKG Measurement Heart [id number] MD [id number] <Conclusion> Sinus tachycardia Otherwise normal ECG
--- NOTE | 2017-04-24 08:23 | CP.PCM.DIS ---
Provider - Provider Date of Admission: 04/22/17 23:57 Attending physician: Rosendo Torres MD Time Spent in preparation of Discharge (in minutes): 15 Diagnosis - Discharge Diagnosis (1) Alcoholic ketoacidosis Status: Acute (2) Alcohol use Status: Acute (3) Palpitations Status: Acute (4) DVT prophylaxis Status: Acute Hospital Course - Lab Results Lab Results: Most Recent Lab Values WBC 14.6 K/uL (4.8-10.8) H 04/23/17 04:30 RBC 3.96 Mil/uL (3.80-5.20) 04/23/17 04:30 Hgb 14.1 g/dL (12.0-16.0) D 04/23/17 04:30 Hct 40.7 % (34.0-47.0) 04/23/17 04:30 MCV 102.9 fl (81.0-99.0) H 04/23/17 04:30 MCH 35.8 pg (27.0-31.0) H 04/23/17 04:30 MCHC 34.7 g/dL (33.0-37.0) 04/23/17 04:30 RDW 12.6 % (11.5-14.5) 04/23/17 04:30 Plt Count 240 K/uL (130-400) 04/23/17 04:30 MPV 6.5 fl (7.2-11.7) L 04/23/17 04:30 Neut % (Auto) 86.0 % (50.0-75.0) H 04/23/17 04:30 Lymph % (Auto) 3.3 % (20.0-40.0) L 04/23/17 04:30 [place] % (Auto) 10.4 % (0.0-10.0) H 04/23/17 04:30 Eos % (Auto) 0.0 % (0.0-4.0) 04/23/17 04:30 Baso % (Auto) 0.3 % (0.0-2.0) 04/23/17 04:30 Neut # (Auto) 12.5 K/uL (1.8-7.0) H 04/23/17 04:30 Lymph # (Auto) 0.5 K/uL (1.0-4.3) L 04/23/17 04:30 [place] # (Auto) 1.5 K/uL (0.0-0.8) H 04/23/17 04:30 Eos # (Auto) 0.0 K/uL (0.0-0.7) 04/23/17 04:30 Baso # (Auto) 0.0 K/uL (0.0-0.2) 04/23/17 04:30 Neutrophils % (Manual) 85 % (42-75) H 04/22/17 20:26 Band Neutrophils % 4 % (0-2) H 04/22/17 20:26 Lymphocytes % (Manual) 5 % (20-50) L 04/22/17 20:26 Monocytes % (Manual) 5 % (0-10) 04/22/17 20:26 Eosinophils % (Manual) 1 % (0-7) 04/22/17 20:26 Platelet Estimate Normal (NORMAL) 04/22/17 20:26 RBC Morphology Normal (NORMAL) 04/22/17 20:26 PT 10.6 Seconds (9.8-13.1) 04/22/17 22:24 INR 1.0 (0.9-1.2) 04/22/17 22:24 APTT 30.8 Seconds (25.6-37.1) 04/22/17 22:24 D-Dimer, Quantitative 205 ng/mlDDU (0-230) 04/22/17 22:24 pCO2 18 mm/Hg (35-45) L* 04/22/17 22:42 pO2 55 mm/Hg (30-55) 04/23/17 04:43 HCO3 10.6 mmol/L (21-28) L 04/22/17 22:42 ABG pH 7.21 (7.35-7.45) L 04/22/17 22:42 ABG Total CO2 7.8 mmol/L (22-28) L 04/22/17 22:42 ABG O2 Saturation 98.2 % (95-98) H 04/22/17 22:42 ABG Base Excess -18.4 mmol/L (-2.0-3.0) L 04/22/17 22:42 ABG Carboxyhemoglobin 3.1 % (0.5-1.5) H 04/23/17 04:43 POC ABG HHb (Measured) 6.9 % (0.0-5.0) H 04/23/17 04:43 ABG Methemoglobin 3.0 % (0.0-3.0) 04/23/17 04:43 Dalton Test Yes 04/22/17 22:42 ABG Potassium 5.7 mmol/L (3.6-5.2) H 04/22/17 22:42 VBG pH 7.23 (7.32-7.43) L 04/23/17 04:43 VBG pCO2 23 mmHg (40-60) L 04/23/17 04:43 VBG HCO3 12.1 mmol/L 04/23/17 04:43 VBG O2 Sat (Calc) 92.6 % (40-65) H 04/23/17 04:43 VBG Base Excess -16.0 mmol/L (0.0-2.0) L 04/23/17 04:43 VBG Hgb O2 Saturation 86.9 % (95.0-98.0) L 04/23/17 04:43 A-a O2 Difference 9.0 mm/Hg 04/22/17 22:42 Hemoglobin 14.5 g/dL (11.7-17.4) 04/23/17 04:43 Sodium 131.0 mmol/L (132-148) L 04/22/17 22:42 Chloride 101.0 mmol/L (98-107) 04/22/17 22:42 Glucose 88 mg/dL (65-105) 04/22/17 22:42 Lactate 4.2 mmol/L (0.7-2.1) H* 04/22/17 22:42 FiO2 21.0 % 04/22/17 22:42 Crit Value Called To Dr noe ni 04/22/17 22:42 Crit Value Called By 292 04/22/17 22:42 Crit Value Read Back Y 04/22/17 22:42 Blood Gas Notified Time 224804/22/17 22:42 Sodium 134 mmol/l (132-148) 04/23/17 04:30 Potassium 5.2 MMOL/L (3.6-5.0) H 04/23/17 04:30 Chloride 99 mmol/L (98-107) 04/23/17 04:30 Carbon Dioxide 8 mmol/L (22-30) L* D 04/23/17 04:30 Anion Gap 32 (10-20) H 04/23/17 04:30 BUN 5 mg/dl (7-17) L 04/23/17 04:30 Creatinine 0.6 mg/dl (0.7-1.2) L 04/23/17 04:30 Est GFR ( Amer) > 60 04/23/17 04:30 Est GFR (Non-Af Amer) > 60 04/23/17 04:30 Random Glucose 103 mg/dL (65-105) 04/23/17 04:30 Lactic Acid 0.5 MMOL/L (0.7-2.1) L 04/23/17 05:14 Calcium 8.9 mg/dL (8.4-10.2) 04/23/17 04:30 Total Bilirubin 1.3 mg/dl (0.2-1.3) 04/23/17 04:30 AST 70 U/L (14-36) H D 04/23/17 04:30 ALT 51 U/L (9-52) 04/23/17 04:30 Alkaline Phosphatase 74 U/L (38-126) 04/23/17 04:30 Total Creatine Kinase 515 U/L (30-135) H 04/22/17 23:56 Troponin I < 0.0120 ng/mL (0.00-0.120) 04/23/17 04:30 Total Protein 7.9 G/DL (6.3-8.2) 04/23/17 04:30 Albumin 4.6 g/dL (3.5-5.0) 04/23/17 04:30 Globulin 3.3 gm/dL (2.2-3.9) 04/23/17 04:30 Albumin/Globulin Ratio 1.4 (1.0-2.1) 04/23/17 04:30 TSH 3rd Generation 0.81 mIU/ML (0.46-4.68) 04/22/17 20:26 Arterial Blood Potassium 5.7 mmol/L (3.6-5.2) H 04/22/17 22:42 Urine Color Yellow (YELLOW) 04/23/17 10:48 Urine Clarity Clear (Clear) 04/23/17 10:48 Urine pH 6.0 (5.0-8.0) 04/23/17 10:48 Ur Specific [place] 1.009 (1.003-1.030) 04/23/17 10:48 Urine Protein Negative mg/dL (NEGATIVE) 04/23/17 10:48 Urine Glucose (UA) 150 mg/dL (Normal) 04/23/17 10:48 Urine Ketones 20 mg/dL (NEGATIVE) 04/23/17 10:48 Urine Blood Moderate (NEGATIVE) 04/23/17 10:48 Urine Nitrate Negative (NEGATIVE) 04/23/17 10:48 Urine Bilirubin Negative (NEGATIVE) 04/23/17 10:48 Urine Urobilinogen 0.2-1.0 mg/dL (0.2-1.0) 04/23/17 10:48 Ur Leukocyte Esterase Trace Gad[place]/uL (Negative) 04/23/17 10:48 Urine RBC (Auto) 2 /hpf (0-3) 04/23/17 10:48 Urine Microscopic WBC 4 /hpf (0-5) 04/23/17 10:48 Ur Squamous Epith Cells 1 /hpf (0-5) 04/23/17 10:48 Urine Opiates Screen Negative (NEGATIVE) 04/22/17 20:40 Urine Methadone Screen Negative (NEGATIVE) 04/22/17 20:40 Ur Barbiturates Screen Negative (NEGATIVE) 04/22/17 20:40 Ur Phencyclidine Scrn Negative (NEGATIVE) 04/22/17 20:40 Ur Amphetamines Screen Negative (NEGATIVE) 04/22/17 20:40 U Benzodiazepines Scrn Negative (NEGATIVE) 04/22/17 20:40 U Oth Cocaine Metabols Negative (NEGATIVE) 04/22/17 20:40 U Cannabinoids Screen Negative (NEGATIVE) 04/22/17 20:40 Alcohol, Quantitative < 10 mg/dl (0-10) 04/23/17 04:30 - Hospital Course Hospital Course: ivf, monitor bw. icu consult Discharge Exam - Head Exam Head Exam: ATRAUMATIC, NORMAL INSPECTION, NORMOCEPHALIC Discharge Plan - Follow Up Plan Condition: GUARDED Disposition: HOME/ ROUTINE Instructions: Leaving Against Medical Advice Additional Instructions: final dx-AKA, hyperkalemia pt states she does not wishe to wait for further tx. does not wish to wait for 3pm bw. feels no palpitations/cp. no f/c, n/v/d pt states will f/u in am. advised can sustain worsening mental state/acidosis. advised no etoh
== END 2017-04-23 10:54 | disposition left against medical advice (07) | DRG 641 ==
LOC: H.ER 19:17 → H.ERHOLD 23:57 → UNDOADMIN 23:57
PROVIDERS: ADMIT Family Medicine; ATTEND Family Medicine
DX: E87.2 Acidosis (principal); D75.1 Secondary polycythemia; F10.129 Alcohol abuse with intoxication, unspecified; F32.9 Major depressive disorder, single episode, unspecified; F41.9 Anxiety disorder, unspecified; R00.2 Palpitations; R00.0 Tachycardia, unspecified; D72.829 Elevated white blood cell count, unspecified

== ENCOUNTER 2017-06-03 00:25 | Emergency (ER) | payer OTHER ==
[2017-06-03 00:25] VITALS: BMI 24.1
[2017-06-03 00:47] VITALS: TEMP 98.2; O2SAT 97
--- NOTE | 2017-06-03 00:59 | ED PDOC ---
HPI: Psych/Substance Abuse Time Seen by Provider: 06/03/17 00:45 Chief Complaint (Nursing): Anxiety History Per: Patient History/Exam Limitations: no limitations Onset/Duration Of Symptoms: Hrs Current Symptoms Are (Timing): Still Present Modifying Factor(s): Alcohol Additional Complaint(s): Hx of anxiety presenting with anxiety, chest pain, shortness of breath. States she was drinking 4 glasses of wine earlier, [place] train [place]30[place] and felt "trapped", took half of .5mg of xanax (for total of 0.25mg) which she states "did nothing". States she has had a long-standing hills with anxiety whether or not she has been drinking. Denies SI or HI, states she does not do drugs. States that of recently, she has been on more alcoholic binges than normal, but denies drinking daily or drinking alone. Past Medical History Reviewed: Historical Data, Nursing Documentation, Vital Signs Vital Signs: Last Vital Signs Temp 98.2 F 06/03/17 00:41 Pulse 98 H 06/03/17 00:41 Resp 18 06/03/17 00:41 BP 147/96 H 06/03/17 00:41 Pulse Ox 97 06/03/17 00:41 - Medical History PMH: Anxiety, Depression Denies: Diabetes, Hepatitis, HIV, HTN, Chronic Kidney Disease, Seizures, Sexually Transmitted Disease - Family History Family History: States: Unknown Family Hx - Home Medications Home Medications: Ambulatory Orders Medication Instructions Recorded Escitalopram [Lexapro] 10 mg PO DAILY 04/22/17 Ethinyl Estradiol/Drospirenone 1 each PO DAILY 04/22/17 [Soo 28 Tablet] - Allergies Allergies/Adverse Reactions: Allergies Allergy/AdvReac Type Severity Reaction Status Date / Time No Known Allergies Allergy Verified 04/22/17 19:29 Review of Systems ROS Statement: Except As Marked, All Systems Reviewed And Found Negative Cardiovascular: Positive for: Chest Pain Respiratory: Positive for: Shortness of Breath Psych: Positive for: Anxiety Physical Exam - Reviewed Vital Signs Reviewed: Yes - Physical Exam Appears: Positive for: Well, Non-toxic, No Acute Distress Head Exam: Positive for: ATRAUMATIC, NORMAL INSPECTION, NORMOCEPHALIC Skin: Positive for: Normal Color, Warm, DRY Eye Exam: Positive for: EOMI, Normal appearance, PERRL ENT: Positive for: Normal ENT Inspection Neck: Positive for: Normal, Painless ROM Cardiovascular/Chest: Positive for: Regular Rate, Rhythm Respiratory: Positive for: CNT, Normal Breath Sounds Gastrointestinal/Abdominal: Positive for: Normal Exam, Soft Back: Positive for: Normal Inspection Extremity: Positive for: Normal ROM Neurologic/Psych: Positive for: Alert, Oriented, Mood/Affect (Anxious appearing) - ECG ECG Rhythm: Positive for: Normal QRS, Normal ST Segment, Sinus Rhythm O2 Sat by Pulse Oximetry: 97 Pulse Ox Interpretation: Normal Medical Decision Making Medical Decision MakinAM A/P: Hx of anxiety presents with chest pain, shortness of breath, anxious feelings -patient well appearing, normal vitals, normal EKG; no family history of cardiac disease -will give patient valium 5mg PO, place on care mgr -will re-evaluate in 1 hour -not concerned for cardiac/pulmonary pathology, presentation is most likely psychiatric -patient offered crisis eval, patient declining at this time, states she will seek psychiatric treatment as outpatient 215AM -Patient reports feeling much better, no chest pain, breathing much better according to patient -Patient will followup with therapist as outpatient -Vitals improved, patient well appearing upon discharge. Disposition - Clinical Impression Clinical Impression: Anxiety attack - Patient ED Disposition Is Patient to be Admitted: No - Disposition Referrals: [facility] [Outside] Disposition: Routine/Home Disposition Time: 02:27 Condition: IMPROVED Instructions: Anxiety, Adult (DC) Forms: [employer] ([place])
[2017-06-03 02:54] VITALS: BP 126/87; PULSE 94; RESP 16
--- NOTE | 2017-06-03 12:33 | CARD ---
APPROVED REPORT EKG Measurement Heart [id number] <Conclusion> Normal sinus rhythm Normal ECG
== END 2017-06-03 02:32 | disposition home or self-care (01) ==
LOC: H.ER 00:25
DX: F41.9 Anxiety disorder, unspecified (principal); F32.9 Major depressive disorder, single episode, unspecified